=== PATIENT | female | born 1970 | race Caucasian/White ===

== ENCOUNTER 2019-11-11 00:14 | Day surgery (SDC) | payer BC, SELFPAY ==
[2019-10-28 15:49] VITALS: BMI 36.0
[2019-11-11] VITALS (8 sets, daily range): BP systolic 126–143; BP diastolic 49–91; PULSE 55–69; RESP 14–20; TEMP 36.4–36.6; O2SAT 97–100
[2019-11-11 08:45] LABS: Urine Cotinine NEGATIVE
[2019-11-11] MEDS: LACTATED RINGERS 1,000 ML 30 ML IV CONT ×2 (09:00→11:43)
[2019-11-11 09:01] LABS: Hemoglobin 12.6 g/dL (12.0-15.0)
--- NOTE | 2019-11-11 09:12 | WPDHPUPDATE1 ---
History and Physical Update Update Date/Time: 11/11/19 09:12 History and Physical has been reviewed, including an updated exam of the patient. There are NO changes in the patient's condition. Risks, benefits, and alternatives have been discussed and questions answered. Patient agrees to proceed with procedure.
--- NOTE | 2019-11-11 09:14 | WPDANESEPPF ---
Anes - Initial Pre Proc Eval Procedure: Operation Date: 11/11/19 10:30 Proposed Procedures p Right Breast Implant Exchange(Right) - Matt Ram MD s Right Breast Fat Grafting - Matt Ram MD Date/Time: 11/11/19 09:14 Surgeon: Matt Ram MD Pre Op Diagnosis: Right Breast Cancer Patient Data Age: 49 Gender: F Height: 5 ft 7 in Weight: 104.33 kg Allergies Allergy/AdvReac Type Severity Reaction Status Date / Time Sulfa (Sulfonamide Allergy Severe Hives Verified 11/11/19 09:13 Antibiotics) Home Medications Medication Instructions Recorded Confirmed Type cetirizine 10 mg PO DAILY 07/07/19 10/28/19 History fluticasone propionate [Flonase 2 spray INTRANASAL DAILY 07/07/19 10/28/19 History Allergy Relief] levonorgestrel 20 mcg/24 hours (5 1 device I-UTERINE ONCE 08/18/19 10/28/19 History yrs) 52 mg intrauterine device lidocaine-prilocaine 2.5 %-2.5 % 1 applic TOPICAL DIRECTED PRN 08/18/19 10/28/19 History topical cream propranolol 60 mg capsule,24 60 mg PO HS #90 cap 09/30/19 10/28/19 Rx hr,extended release tamoxifen 10 mg tablet 20 mg PO DAILY tablet 10/14/19 10/28/19 History hydrocodone 5 mg-acetaminophen 325 1 tablet PO Q6H PRN #15 tablet 10/27/19 10/28/19 Rx mg tablet ondansetron HCl 4 mg tablet 4 mg PO Q6H PRN #30 tablet 10/27/19 10/28/19 Rx ferrous sulfate [iron] 325 mg PO DAILY 10/28/19 10/28/19 History sertraline 100 mg PO HS 10/28/19 10/28/19 History whgeqhbglw-nyvcgbnzbkllk-kqbyabcp 1 cap PO BID PRN #60 cap 11/04/19 Rx 50 mg-300 mg-40 mg capsule Laboratory Tests 11/11/19 11/11/19 08:26 08:26 Hgb 12.6 g/dL g/dL (12.0-15.0) Hct 40.0 % % (37.0-47.0) Cotinine Negative Patient hx anesthesia problems: none Family hx anesthesia problems: none PMFSH Past Medical History Medical History Allergies Anxiety Migraine Surgical History Surgical History H/O mastectomy History of partial mastectomy History of sinus surgery 2007 Family History Family History Grandparent Breast cancer Father Diabetes mellitus Melanoma Hypertension Thyroid disease Gastrointestinal irritation Mother Breast cancer Social History Social History Smoking status: Former smoker Smoking end date: 09/17/96 Alcohol intake: current Anes - Eval Final PreProcedure Day of Procedure 11/11/19 09:14 Patient weight: obese Heart: regular rate and rhythm Lungs: clear to auscultation Airway: Mallampati scale class II Neurological: alert and oriented Last oral intake: >/= 8 hours ASA classification: III Emergent: no Anesthetic plan: proceed Anesthesia type and monitoring: general LMA and standard monitoring Informed Consent: The patient's anesthetic plan and its attendant risks and benefits were discussed with the patient/family/POA. Questions were solicited and answers provided to the satisfaction of the patient/family/POA.
[2019-11-11] MEDS: ceFAZolin 2 GM/D5W 50 ML 2 GM/50 ML BAG IVPB (09:50)
[2019-11-11] MEDS: LIDO 1%/EPINEPHRINE 1:100,000 20 ML VIAL 10 ML INFILTRATE (11:33)
--- NOTE | 2019-11-11 12:27 | P.OP_ITS ---
Procedure Note - Detailed Date of procedure: 11/11/19 Pre-op diagnosis: Right Breast Cancer 1. Acquired breast deformity 2. History right breast mastectomy 3. History right breast cancer Post-op diagnosis: same Procedure performed: 1. Right breast tissue special education associate removal 2. Right breast capsulotomy 3. Placement right breast implant 4. Fat grafting right breast 60 cc harvest from abdomen Description of procedure: Patient was marked in the preoperative holding area with her verification. Right implant was elevated significantly superiorly we will going to try to lower this understanding the risks. She also understands she may have a band along the lower edge as she has developed a new elevated fold well above her previous IMF scar. She was taken to the operating room placed supine on the operating table. A nesthesia provided by anesthesiology. Prepped and draped in a standard sterile fashion. Surgical time-out was taken. 1% lidocaine and 0.25% Marcaine with epinephrine was used to provide a field block on the right breast. On the abdomen I used a 14 gauge needle at the umbilicus after an abdominal exam was completed. Then infiltrated with a tumescent solution for 1 L. Once adequate time for hemostasis I used a multi hole 2 mm cannula due to complete suction lipectomy through the umbilicus site. Allowed this to separate by gravity separation device and only use the central portion getting rid of the liquid low in the lipid above. While waiting for separation 15 blade used to excise the previous IMF scar in the central portion. I continued until the implant was identified. This tissue special education associate then suctioned 18 gauge on suction and remove the volume. This was 800 cc and matched our estimate from previous notes. I then irrigated with a L of bacitracin containing saline on TUR tubing. I incised along the IMF to release that and lower the fold. Also scored as necessary. A Sizer was placed into the pocket. At this point I proceeded with fat grafting using a 2.1 mm cannula in multiple planes and passes with the Sizer in place. This was based on a sitting position after verified implant positioning and areas to fill. It was essentially entire breast trying to thickened these flaps and in particular superior and superior lateral. Once I was happy with the appearance the Sizer was removed. I irrigated again with saline solution and verified a strict hemostasis. The implant pocket was irrigated with Betadine and triple antibiotic containing solution. Washed my hands with this. Soak the implant I then introduced into the pocket. Throughout the procedure I did have Tegaderm nipple Saenz in place. Verified positioning was closed using 2-0 Vicryl followed by 3-0 Monocryl in a running subcuticular 4-0 Monocryl and tissue glue. Surgical bra was placed. Patient was awoke and taken the PACU without difficulty. All instrument sponge counts were correct at the end of the case. Anesthesia: GLMA Surgeon: Matt Ram MD Estimated blood loss (mL): 50 Drains: No Packing: No Pathology: none sent Complications: No immediate complications Condition: stable Disposition: PACU Findings: Right breast implant [employer] Inspira SoftTouch REF# [id number] SN: [id number]
== END 2019-11-11 13:34 | disposition home or self-care (01) ==
PROVIDERS: Anesthesiology; PCP Internal Medicine; Visit Provider Surgery Plastic and Reconstructive Surgery
PROC: (CPT 11970; principal; 2019-11-11 10:30)
PROC: (CPT 15769; 2019-11-11 10:30)
DX: Z42.1 Encounter for breast reconstruction following mastectomy (principal); Z90.11 Acquired absence of right breast and nipple; Z85.3 Personal history of malignant neoplasm of breast; F41.9 Anxiety disorder, unspecified; Z79.810 Long term (current) use of selective estrogen receptor modulators (SERMs); E66.9 Obesity, unspecified; Z68.36 Body mass index [BMI] 36.0-36.9, adult
CPT/HCPCS: 11970; 19366; 36415; 80307; 85014; 85018; A9270; J0131; J0171; J0690; J1100; J1170; J1580; J2250; J2405; J2704; J2710; J3010; J7030; J7120

== ENCOUNTER 2020-01-08 08:26 | Outpatient (CLI) | payer BC, SELFPAY ==
--- NOTE | ~2020-01-08 | MM_ITS ---
EXAMINATION: MM screening yifan LT w verónica HISTORY: Screening left mammogram, history of right mastectomy TECHNIQUE: Craniocaudal and mediolateral oblique 3-D tomosynthesis images were obtained and synthetic 2-D images were generated. CAD analysis was submitted and interpreted. COMPARISON: 11/11/2018, 12/18/2016, 12/14/2016 BREAST PARENCHYMAL COMPOSITION: There are scattered areas of fibroglandular density. FINDINGS: A Port-A-Cath has been inserted since the previous examination. An asymmetry is present in the middle third of the inner breast 5.5 cm from the nipple on the cranioc audal view.. IMPRESSION: 1. Asymmetry on the craniocaudal view. 2. Additional mammographic views and possible breast ultrasound are recommended. BI-RADS Category 0: Incomplete: Needs additional imaging evaluation. Reviewed, dictated and finalized at location A. IMPRESSION: 1. Asymmetry on the craniocaudal view. 2. Additional mammographic views and possible breast ultrasound are recommended . BI-RADS Category 0: Incomplete: Needs additional imaging evaluation.
== END 2020-01-08 08:27 | disposition home or self-care (01) ==
LOC: ANHIMG 08:29
PROVIDERS: PCP Internal Medicine; Visit Provider Internal Medicine Hematology & Oncology
DX: Z12.31 Encounter for screening mammogram for malignant neoplasm of breast (principal); R92.8 Other abnormal and inconclusive findings on diagnostic imaging of breast
CPT/HCPCS: 77063; 77067

== ENCOUNTER 2020-01-15 11:46 | Outpatient (CLI) | payer BC, SELFPAY ==
--- NOTE | ~2020-01-15 | MMUS_ITS ---
EXAMINATION: MM diagnostic mammo unilat LT, US breast LT limited HISTORY: Asymmetry of left breast reported in middle third of inner breast 5.5 cm from the nipple on left craniocaudal view TECHNIQUE: Additional 3-D tomosynthesis images of the left breast were performed and synthetic 2-D im ages were generated. CAD analysis was submitted and interpreted. High resolution upper inner and lowe r inner quadrant left breast ultrasound was performed. COMPARISON: 01/08/2020 left digital mammographic screening views FINDINGS: MAMMOGRAPHIC FINDINGS: No reproducible mass is evident on these supplemental views. There is suggestion of mild architectura l distortion likely related to history of prior left breast reduction surgery. As a precaution, lower inner and upper inner quadrant left breast ultrasound examination was performed. Left Port-A-Cath catheter. ULTRASOUND: No suspicious mass or shadowing is evident. IMPRESSION: 1. No mammographic evidence of malignancy; status post left breast reduction surgery 2. Routine mammographic screening follow-up in 1 year is recommended unless indicated earlier based u evy clinical history, patient's symptoms or physical examination findings BI-RADS Category 2: Benign finding(s). Reviewed, dictated and finalized at location A. IMPRESSION: 1. No mammographic evidence of malignancy; status post left breast reduction liriano rgery 2. Routine mammographic screening follow-up in 1 year is recommended unless ind icated earlier based upon clinical history, patient's symptoms or physical exam ination findings BI-RADS Category 2: Benign finding(s).
== END 2020-01-15 11:47 | disposition home or self-care (01) ==
PROVIDERS: PCP Internal Medicine; Visit Provider Internal Medicine Hematology & Oncology
DX: R92.8 Other abnormal and inconclusive findings on diagnostic imaging of breast (principal)
CPT/HCPCS: 76642; 77065

== ENCOUNTER 2020-01-16 14:54 | Outpatient (CLI) | payer BC, SELFPAY ==
--- NOTE | 2020-01-16 | ECHO_ITS ---
Patient Info Name: Hilaria Goncalves Age: 49 years : 1970 Gender: Female Ht: 67 in Wt: 230 lbs BSA: 2.26 m2 HR: 55 bpm BP: 116 / 72 mmHg Heart Rhythm: Bradycardia Technical Quality: Good Exam Date: 01/16/2020 3:17 PM Exam Location: [facility] Pulmonary Patient Status: Outpatient Admit Date: 01/16/2020 Staff Ordering Physician: Wei Nagel MD Launch Operator: Favian Andres RDCS Attending Provider: Wei Nagel MD Referring Physician: Shona CARLOS; Exam Type: CA echo doppler color flow Study Info Indications Z01.818 - Encounter for other preprocedural examination Complete two-dimensional, color flow and Doppler transthoracic echocardiogram is performed. Strain analysis performed. History/Risk Factors Breast cancer. Summary 1. Left ventricular chamber dimension is mildly enlarged. 2. Left ventricular systolic function is normal, estimated at 60-65%. 3. The left ventricular diastolic function is normal. 4. E/e' 7 is not elevated. 5. Global longitudinal strain is normal at -22.2%. 6. Left atrial chamber dimension is mildly enlarged. 7. There is trace mitral valve regurgitation. 8. There is trace tricuspid valve regurgitation. Left Ventricle E/e' 7 is not elevated. Global longitudinal strain is normal at -22.2%. Left ventricular chamber dimension is mildly enlarged. Left ventricular systolic function is normal, estimated at 60-65%. The left ventricular diastolic function is normal. Right Ventricle Right ventricular chamber dimension is normal. Right ventricular systolic function is normal. Left Atria Left atrial chamber dimension is mildly enlarged. Right Atria Right atrial chamber dimension is normal. Aortic Valve The aortic valve is trileaflet. There is no aortic valve stenosis. There is no aortic valve regurgitation. Pulmonic Valve There is no pulmonic regurgitation. Mitral Valve There is no mitral valve stenosis. There is trace mitral valve regurgitation. Tricuspid Valve There is trace tricuspid valve regurgitation. RVSP is not measured due to an inadequate TR jet. Pericardium/Pleural There is no pericardial effusion. Inferior Vena Cava Normal inferior vena cava with >50% collapse upon inspiration consistent with normal right atrial pressure, 5 mmHg. Aorta The aortic root size at the sinus of Valsalva is normal. Left Ventricular Outflow Tract Name Value Normal LVOT 2D LVOT Diameter 2.0 cm LVOT Doppler LVOT Peak Gradient 6 mmHg LVOT Mean Gradient 3 mmHg LVOT VTI 29 cm LVOT VTI/AV VTI Ratio 0.8 LVOT Stroke Volume 89 ml LVOT CO 4.9 l/min LVOT CI 2.2 l/min/m2 Mitral Valve Name Value Normal MV Doppler
== END 2020-01-16 14:55 | disposition home or self-care (01) ==
PROVIDERS: PCP Internal Medicine; Visit Provider Internal Medicine Hematology & Oncology
DX: Z01.810 Encounter for preprocedural cardiovascular examination (principal); I51.7 Cardiomegaly
CPT/HCPCS: 93306

== ENCOUNTER 2020-02-16 14:18 | Outpatient (CLI) | payer BC, SELFPAY ==
--- NOTE | ~2020-02-16 | XR_ITS ---
EXAMINATION: XR fl port a cath w contrast DATE: 02/16/2020 14:54 INDICATION: Port dysfunction. TECHNIQUE: I performed fluoroscopy while the port was injected with Omnipaque 240 intravenous contras t. 161 images were obtained. Fluoroscopy exposure time was 0.1 minutes. COMPARISON: Chest single view 01/06/2019 FINDINGS: There is a left chest port with tip in superior vena cava. The catheter tip has retracted 3 cm when compared to the prior image. There is no fracture of the catheter. There is dense retrograde flow of contrast in the veins around the catheter tip. There is fainter antegrade flow contrast. IMPRESSION: 1. Retrograde and antegrade dispersion of contrast at the catheter tip in the superior vena cava sugg esting incomplete extrinsic blockage. Reviewed, dictated and finalized at location A. IMPRESSION: 1. Retrograde and antegrade dispersion of contrast at the catheter tip in the s uperior vena cava suggesting incomplete extrinsic blockage.
== END 2020-02-16 14:19 | disposition home or self-care (01) ==
LOC: ANHIMG 14:22
PROVIDERS: PCP Internal Medicine; Visit Provider Internal Medicine Hematology & Oncology
DX: C50.411 Malignant neoplasm of upper-outer quadrant of right female breast (principal); Z17.0 Estrogen receptor positive status [ER+]
CPT/HCPCS: 36598; Q9966

== ENCOUNTER 2020-03-04 12:36 | Outpatient (CLI) | payer BC, SELFPAY ==
[2020-03-04 13:18] LABS: Basophils Percent Auto 0.6 % (0.2-1.2); Eosinophils Absolute Auto 0.1 K/mm3 (0-0.3); Eosinophils Percent Auto 1.8 % (0-4.4); Hematocrit 38.2 % (37.0-47.0); Hemoglobin 12.7 g/dL (12.0-15.0); Immature Granulocyte Absolute 0.01 K/mm3 (0.00-0.031); Immature Granulocyte Percent A 0.2 % (0-0.5); Lymphocytes Absolute Auto 1.35 K/mm3 (0.9-3.2); Lymphocytes Percent Auto 26.3 % (18.3-44.2); Mean Corpuscular HGB Conc 33.2 g/dl (32-36); Mean Corpuscular Hemoglobin 30.2 pg (26-34); Mean Corpuscular Volume 90.7 fl (80-100); Mean Platelet Volume 11.3 fl (7.4-10.4); Monocytes Absolute Auto 0.4 K/mm3 (0.1-0.6); Monocytes Percent Auto 7.2 % (2.6-8.5); Neutrophils Absolute Auto 3.3 K/mm3 (1.3-6.7); Neutrophils Percent Auto 63.9 % (45.5-73.1); Platelet Count Result 241 k/mm3 (150-375); Red Blood Count 4.21 M/mm3 (4.2-5.4); Red Cell Distribution Width 12.4 % (11.5-14.5); White Blood Count 5.1 K/mm3 (4.5-10.0)
[2020-03-04 13:26] LABS: Alanine Aminotransferase 12 U/L (4-35); Albumin Level 4.1 g/dL (3.5-5.1); Alkaline Phosphatase 91 U/L (38-126); Aspartate Amino Transferase 18 U/L (14-36); Bilirubin,Total 0.2 mg/dL (0.2-1.3); Blood Urea Nitrogen 17 mg/dL (7-17); Calcium 8.6 mg/dL (8.4-10.2); Carbon Dioxide 27 mmol/L (22-30); Chloride 105 mmol/L (98-107); Estimated Glomerular Filt Rate > 60; Glucose 134 mg/dL (65-105); Potassium 4.1 mmol/L (3.4-5.0); Sodium 137 mmol/L (137-145)
== END 2020-03-04 12:37 | disposition home or self-care (01) ==
LOC: ANHLAB 12:46 → ANHVASCINF 12:50
PROVIDERS: PCP Internal Medicine; Visit Provider Internal Medicine Hematology & Oncology
DX: C50.411 Malignant neoplasm of upper-outer quadrant of right female breast (principal); Z17.0 Estrogen receptor positive status [ER+]
CPT/HCPCS: 36415; 80053; 85025; 99212; G0463

== ENCOUNTER 2020-03-09 00:24 | Outpatient (CLI) | payer BC, SELFPAY ==
[2020-03-09 18:55] LABS: SARS-CoV-2 RNA PCR Negative
== END 2020-03-09 00:25 | disposition home or self-care (01) ==
LOC: ANHCOVIDDT 00:24
PROVIDERS: PCP Internal Medicine; Visit Provider Surgery
DX: Z01.818 Encounter for other preprocedural examination (principal); Z11.59 Encounter for screening for other viral diseases
CPT/HCPCS: 87635; C9803; U0003

== ENCOUNTER 2020-03-11 00:58 | Day surgery (SDC) | payer BC, SELFPAY ==
[2020-03-08 09:56] VITALS: BMI 37.5
--- NOTE | 2020-03-11 09:26 | PM.IMHP ---
H&P: HPI History of Present Illness Chief complaint: Rt Breast Ca Narrative: Hilaria Goncalves is a 49 year old female presenting for port removal. The patient has a history of right-sided breast cancer for which she is getting Herceptin. The patient had port placed in left chest in December of 2018. The patient reports as of her last treatment, which was a month ago, that her port has been nonfunctional. The patient had a port study which confirmed nonfunctioning. Given that she only has 2 treatments left, the decision was made for port removal. Review of Systems Constitutional: Constitutional: Denies anorexia, Denies chills, Denies fatigue, Denies headache(s), Denies lethargy, Denies malaise, Denies poor appetite, Denies weakness, Denies weight gain and Denies weight loss Eyes: Eyes: Reports no additional eye complaints and Denies change in vision ENT: Reports Normal hearing present, Denies headache(s), Denies hearing loss and Denies sore throat Cardiovascular: Cardiovascular: Denies chest pain, Denies palpitations and Denies dyspnea Respiratory: Respiratory: Denies cough and Denies dyspnea Gastrointestinal: Gastrointestinal: Denies abdominal pain, Denies change in stool character, Denies constipation, Denies diarrhea, Denies nausea and Denies vomiting Genitourinary: Genitourinary: Denies urinary frequency, Denies dysuria and Denies urinary urgency Musculoskeletal: Musculoskeletal: Reports no additional musculoskeletal complaints Integumentary/Breasts: Skin/Breast: Denies pruritus, Denies lesions and Denies wounds Neurologic: Denies confusion and Denies headache(s) Psychiatric: Psychiatric: Reports no additional psychiatric complaints and Denies confusion Endocrine: Endocrine: Reports no additional endocrine complaints, Denies fatigue and Denies palpitations Hematologic/Lymphatic: Hematologic/Lymphatic: Reports no additional hematologic/lymphatic complaints Allergic/Immunologic: Allergic/Immunologic: Reports no additional allergic/immunologic complaints [facility] Past Medical History Medical History Allergies Anxiety Breast cancer GERD (gastroesophageal reflux disease) Migraine Surgical History Surgical History H/O mastectomy History of partial mastectomy History of sinus surgery 2007 Family History Family History Grandparent Breast cancer Father Diabetes mellitus Melanoma Hypertension Thyroid disease Gastrointestinal irritation Mother Breast cancer Social History Social History Smoking status: Former smoker Smoking end date: 09/17/96 Alcohol intake: current Meds Home Medications and Allergies Home Medications Medication Instructions Recorded Confirmed Type cetirizine 10 mg PO DAILY 07/07/19 03/08/20 History fluticasone propionate [Flonase 2 spray INTRANASAL DAILY 07/07/19 03/08/20 History Allergy Relief] levonorgestrel 20 mcg/24 hours (5 1 device I-UTERINE ONCE 08/18/19 03/08/20 History yrs) 52 mg intrauterine device tamoxifen 10 mg tablet 20 mg PO DAILY tablet 10/14/19 03/08/20 History ferrous sulfate [iron] 325 mg PO DAILY 10/28/19 03/08/20 History propranolol 60 mg capsule,24 60 mg PO HS #90 cap 01/01/20 03/08/20 Rx hr,extended release natkyvxdwm-hulanspuhuiog-vafuhlwv 1 cap PO BID PRN #60 cap 01/27/20 03/08/20 Rx 50 mg-300 mg-40 mg capsule sertraline 150 mg PO HS 03/08/20 03/08/20 History Allergies Allergy/AdvReac Type Severity Reaction Status Date / Time Sulfa (Sulfonamide Allergy Severe Hives Verified 03/08/20 09:48 Antibiotics) Exam Const: General: cooperative, healthy appearing, no acute distress and well developed; No confusion Orientation/consciousness: patient oriented x3 and No confusion HENMT: Head: normal to inspection, n
--- NOTE | 2020-03-11 09:27 | WPDANESEPPF ---
Anes - Initial Pre Proc Eval Procedure: Operation Date: 03/11/20 11:00 Proposed Procedures p Removal Alia Cath - Radha Peters MD Date/Time: 03/11/20 09:27 Surgeon: Radha Peters MD Pre Op Diagnosis: Rt Breast Ca Patient Data Age: 49 Gender: F Height: 1.7 m Weight: 108.86 kg Allergies Allergy/AdvReac Type Severity Reaction Status Date / Time Sulfa (Sulfonamide Allergy Severe Hives Verified 03/08/20 09:48 Antibiotics) Home Medications Medication Instructions Recorded Confirmed Type cetirizine 10 mg PO DAILY 07/07/19 03/08/20 History fluticasone propionate [Flonase 2 spray INTRANASAL DAILY 07/07/19 03/08/20 History Allergy Relief] levonorgestrel 20 mcg/24 hours (5 1 device I-UTERINE ONCE 08/18/19 03/08/20 History yrs) 52 mg intrauterine device tamoxifen 10 mg tablet 20 mg PO DAILY tablet 10/14/19 03/08/20 History ferrous sulfate [iron] 325 mg PO DAILY 10/28/19 03/08/20 History propranolol 60 mg capsule,24 60 mg PO HS #90 cap 01/01/20 03/08/20 Rx hr,extended release ceynnewnnd-kdgmgdjagvvxa-nnrgccmj 1 cap PO BID PRN #60 cap 01/27/20 03/08/20 Rx 50 mg-300 mg-40 mg capsule sertraline 150 mg PO HS 03/08/20 03/08/20 History Patient hx anesthesia problems: none Family hx anesthesia problems: none [facility] Past Medical History Medical History (Updated 03/10/20 @ 09:03 by Da Emmanuel DO) Allergies Anxiety Breast cancer GERD (gastroesophageal reflux disease) Migraine Surgical History Surgical History H/O mastectomy History of partial mastectomy History of sinus surgery 2007 Social History Social History Smoking status: Former smoker Smoking end date: 09/17/96 Alcohol intake: current Anes - Eval Final PreProcedure Day of Procedure 03/11/20 09:27 Patient weight: obese Heart: regular rate and rhythm Lungs: clear to auscultation and normal air movement Airway: Mallampati scale class III Neurological: alert and oriented Last oral intake: >/= 8 hours ASA classification: II Emergent: no Anesthetic plan: proceed Anesthesia type and monitoring: general GIVS and standard monitoring Informed Consent: The patient's anesthetic plan and its attendant risks and benefits were discussed with the patient/family/POA. Questions were solicited and answers provided to the satisfaction of the patient/family/POA.
[2020-03-11] MEDS: IBUPROFEN IV 800 MG/200 ML 800 MG/200 ML BAG 400 MG IVPB (09:40)
[2020-03-11] MEDS: LACTATED RINGERS 1,000 ML 30 ML IV CONT (09:40)
[2020-03-11 09:49] VITALS: BP 100/60; PULSE 54; RESP 16; TEMP 36.8; O2SAT 97
[2020-03-11] MEDS: ceFAZolin 2 GM/D5W 50 ML 2 GM/50 ML BAG IVPB (10:46)
[2020-03-11] MEDS: BUPIVACAINE/EPINEPHRINE 0.5% 30 ML VIAL INFILTRATE (11:14)
[2020-03-11 11:21] VITALS: BP 98/59; PULSE 60; RESP 16; O2SAT 96
--- NOTE | 2020-03-11 11:46 | P.OP_ITS ---
Procedure Note - Detailed Date of procedure: 03/11/20 Pre-op diagnosis: Rt Breast Ca Post-op diagnosis: same Procedure performed: Removal left chest venous access device Description of procedure: The patient was taken to the operating room placed in the supine position. After adequate induction of MAC anesthesia, the patient was prepped and draped in the normal sterile fashion. A time-out was then done to verify the patient's identity, as well as the procedure being performed. I began by localizing the previous incision line in the left chest and around the port itself. Once this was done, I made an incision through the old incision to the level of the port. I then bluntly dissected around the port, and located the 2 sutures holding the port in place. I then cut the 2 sutures and removed the port from the pocket. I was then able to remove the port and catheter in full. The catheter was noted in the left subclavian vein. I then held pressure at the level of the left subclavian vein for approximately 5 minutes. Hemostas is was noted after pressure was held. I then localized the pocket further and closed the subcutaneous tissue with 3 0 Vicryl suture. I then closed the skin with 4 O Monocryl subcuticular suture. Dermabond was then placed on the wound. The patient tolerated the procedure well, was alert and awake in the operating room postoperatively, and will be transferred to the recovery in stable condition. Implants: none Anesthesia: MAC and local Surgeon: Radha Peters MD Estimated blood loss (mL): 5 Drains: No Packing: No Pathology: none sent Complications: No immediate complications Condition: stable Disposition: PACU Findings: left SCV VAD
[2020-03-11 11:51] VITALS: BP 103/65; PULSE 56; RESP 16
[2020-03-11 12:21] VITALS: BP 100/67; PULSE 55; RESP 16
== END 2020-03-11 12:27 | disposition home or self-care (01) ==
PROVIDERS: PCP Internal Medicine; Visit Provider Surgery
PROC: (CPT 36589; principal; 2020-03-11 11:00)
DX: Z45.2 Encounter for adjustment and management of vascular access device (principal); C50.411 Malignant neoplasm of upper-outer quadrant of right female breast; Z17.0 Estrogen receptor positive status [ER+]; Z79.810 Long term (current) use of selective estrogen receptor modulators (SERMs); Z90.11 Acquired absence of right breast and nipple; F41.9 Anxiety disorder, unspecified; K21.9 Gastro-esophageal reflux disease without esophagitis; G43.909 Migraine, unspecified, not intractable, without status migrainosus; Z87.891 Personal history of nicotine dependence
CPT/HCPCS: 36590; 87635; C9803; J0690; J1741; J2250; J2704; J3010; J7120; U0003

== ENCOUNTER 2020-04-15 13:32 | Outpatient (CLI) | payer BC, SELFPAY ==
[2020-04-15 14:07] LABS: Basophils Percent Auto 0.8 % (0.2-1.2); Eosinophils Absolute Auto 0.1 K/mm3 (0-0.3); Eosinophils Percent Auto 1.9 % (0-4.4); Hematocrit 38.5 % (37.0-47.0); Hemoglobin 12.7 g/dL (12.0-15.0); Immature Granulocyte Absolute 0.01 K/mm3 (0.00-0.031); Immature Granulocyte Percent A 0.2 % (0-0.5); Lymphocytes Absolute Auto 1.53 K/mm3 (0.9-3.2); Lymphocytes Percent Auto 29.8 % (18.3-44.2); Mean Corpuscular Hemoglobin 30.2 pg (26-34); Mean Corpuscular Volume 91.4 fl (80-100); Mean Platelet Volume 11.3 fl (7.4-10.4); Monocytes Absolute Auto 0.3 K/mm3 (0.1-0.6); Monocytes Percent Auto 6.2 % (2.6-8.5); Neutrophils Absolute Auto 3.1 K/mm3 (1.3-6.7); Neutrophils Percent Auto 61.1 % (45.5-73.1); Platelet Count Result 259 k/mm3 (150-375); Red Blood Count 4.21 M/mm3 (4.2-5.4); Red Cell Distribution Width 12.2 % (11.5-14.5); White Blood Count 5.1 K/mm3 (4.5-10.0)
[2020-04-15 14:21] LABS: Alanine Aminotransferase 16 U/L (4-35); Albumin Level 4.1 g/dL (3.5-5.1); Alkaline Phosphatase 90 U/L (38-126); Anion Gap 12.2 mmol/L (7-16); Aspartate Amino Transferase 23 U/L (14-36); Bilirubin,Total 0.2 mg/dL (0.2-1.3); Blood Urea Nitrogen 17 mg/dL (7-17); Calcium 8.8 mg/dL (8.4-10.2); Carbon Dioxide 27 mmol/L (22-30); Chloride 104 mmol/L (98-107); Estimated Glomerular Filt Rate > 60; Glucose 120 mg/dL (65-105); Potassium 4.2 mmol/L (3.4-5.0); Sodium 139 mmol/L (137-145)
== END 2020-04-15 13:33 | disposition home or self-care (01) ==
PROVIDERS: PCP Internal Medicine; Visit Provider Internal Medicine Hematology & Oncology
DX: C50.411 Malignant neoplasm of upper-outer quadrant of right female breast (principal); Z17.0 Estrogen receptor positive status [ER+]
CPT/HCPCS: 36415; 80053; 85025; 99212; G0463

== ENCOUNTER 2020-12-30 08:46 | Outpatient (CLI) | payer BC, SELFPAY | END 2020-12-30 08:47 | disposition home or self-care (01) | LOC: ANHCOVIDVC 08:46 | PROVIDERS: PCP Internal Medicine | DX: Z23 Encounter for immunization (principal) | CPT/HCPCS: 0001A; 91300 ==

== ENCOUNTER 2021-01-20 08:46 | Outpatient (CLI) | payer BC, SELFPAY | END 2021-01-20 08:47 | disposition home or self-care (01) | LOC: ANHCOVIDVC 08:47 | PROVIDERS: PCP Internal Medicine | DX: Z23 Encounter for immunization (principal) | CPT/HCPCS: 0002A; 91300 ==

== ENCOUNTER 2021-03-03 16:16 | Outpatient (CLI) | payer BC, SELFPAY ==
--- NOTE | ~2021-03-03 | MM_ITS ---
EXAMINATION: MM screening yifan LT w verónica HISTORY: Screening left mammogram, history of right mastectomy TECHNIQUE: Craniocaudal and mediolateral oblique 3-D tomosynthesis images were obtained and synthetic 2-D images were generated. CAD analysis was submitted and interpreted. COMPARISON: 01/15/2020, 01/08/2020, 11/11/2018, 12/18/2016 BREAST PARENCHYMAL COMPOSITION: There are scattered areas of fibroglandular density. FINDINGS: There is no evidence of suspicious mass, calcification, or architectural distortion to sugg est malignancy. There has been no suspicious interval change. IMPRESSION: 1. No mammographic evidence of malignancy. 2. Recommend routine screening mammography in one year. BI-RADS Category 1: Negative Reviewed, dictated and finalized at location A.
== END 2021-03-03 16:17 | disposition home or self-care (01) ==
LOC: ANHIMG 16:18
PROVIDERS: PCP Internal Medicine; Visit Provider Internal Medicine Hematology & Oncology
DX: Z12.31 Encounter for screening mammogram for malignant neoplasm of breast (principal)
CPT/HCPCS: 77063; 77067

== ENCOUNTER 2022-01-11 01:20 | Day surgery (SDC) | payer BC, SELFPAY ==
[2021-12-30 10:47] VITALS: BMI 39.2
[2022-01-11 12:32] VITALS: BP 118/81; PULSE 78; RESP 18; TEMP 37.3; O2SAT 97; BMI 38.8
[2022-01-11] MEDS: LACTATED RINGERS 1,000 ML 150 ML IV CONT (12:56)
--- NOTE | 2022-01-11 13:57 | WPDANESEPPF ---
Anes - Initial Pre Proc Eval Procedure: Operation Date: 01/11/22 13:45 Proposed Procedures p Screening Colonoscopy - Ben Blackmon MD Date/Time: 01/11/22 13:57 Surgeon: Ben Blackmon MD Pre Op Diagnosis: neoplasm screening Patient Data Age: 51 Gender: F Height: 1.7 m Weight: 112.6 kg Last Vital Signs Temp 99.1 F 01/11/22 12:32 Pulse 78 01/11/22 12:32 Resp 18 01/11/22 12:32 BP 118/81 01/11/22 12:32 Pulse Ox 97 01/11/22 12:32 Allergies Allergy/AdvReac Type Severity Reaction Status Date / Time Sulfa (Sulfonamide Allergy Severe Hives Verified 01/11/22 12:43 Antibiotics) Home Medications Medication Instructions Recorded Confirmed Type cetirizine 10 mg PO DAILY 07/07/19 01/11/22 History fluticasone propionate [Flonase 2 spray INTRANASAL DAILY 07/07/19 01/11/22 History Allergy Relief] levonorgestrel 20 mcg/24 hours (7 1 device I-UTERINE ONCE 08/18/19 01/11/22 History yrs) 52 mg intrauterine device tamoxifen 10 mg tablet 20 mg PO DAILY tablet 10/14/19 01/11/22 History hydroxyzine HCl 10 mg tablet 10 mg PO BID PRN #60 tablet 09/01/20 01/11/22 Rx sertraline 100 mg tablet 150 mg PO DAILY #135 tablet 03/09/21 01/11/22 Rx propranolol 60 mg capsule,24 60 mg PO HS #90 cap 07/04/21 01/11/22 Rx hr,extended release jqnykhkmrr-mzwqfkilnvgyx-pstmqylo 1 cap PO DAILY PRN #30 cap 11/09/21 01/11/22 Rx 50 mg-300 mg-40 mg capsule Patient hx anesthesia problems: none Family hx anesthesia problems: none Results Review: All pre-operative results and documents have been reviewed as part of the pre-operative evaluation. [facility] Past Medical History Medical History Allergies Anxiety Breast cancer GERD (gastroesophageal reflux disease) Migraine Surgical History Surgical History H/O mastectomy History of partial mastectomy History of sinus surgery 2007 Family History Family History Grandparent Breast cancer Father Diabetes mellitus Melanoma Hypertension Thyroid disease Gastrointestinal irritation Mother Breast cancer Social History Social History Years smoked: 2 Smoking status: Former smoker Tobacco type: cigarettes Smoking end date: 09/17/96 Alcohol intake: current Drinks per week: 1 Substance use: never Substance use type: does not use Living arrangements: with family Spiritual care concerns: No Anes - Eval Final PreProcedure Day of Procedure 01/11/22 13:57 Patient weight: obese Heart: regular rate and rhythm Airway: Mallampati scale class III Neurological: alert and oriented Last oral intake: >/= 8 hours ASA classification: III Emergent: no Anesthetic plan: proceed Anesthesia type and monitoring: general GIVS and standard monitoring Results Review: All pre-operative results and documents have been reviewed as part of the pre-operative evaluation. Informed Consent: The patient's anesthetic plan and its attendant risks and benefits were discussed with the patient/family/POA. Questions were solicited and answers provided to the satisfaction of the patient/family/POA.
--- NOTE | 2022-01-11 14:24 | PM.HPGS ---
History of Present Illness History of Present Illness Consent: Risks, benefits, and alternatives have been discussed and questions answered. Patient agrees to proceed with procedure. Chief complaint: neoplasm screening Narrative: Hilaria Goncalves is a 51 year old female here for first screening colonoscopy Review of Systems Constitutional: Constitutional: Denies headache(s) and Denies weakness Eyes: Eyes: Denies blurry vision ENT: Reports Normal hearing present, Denies headache(s) and Denies neck pain Cardiovascular: Cardiovascular: Denies chest pain and Denies dyspnea Respiratory: Respiratory: Denies dyspnea Gastrointestinal: Gastrointestinal: Reports no additional gastrointestinal complaints Genitourinary: Genitourinary: Denies dysuria Musculoskeletal: Musculoskeletal: Denies neck pain Integumentary/Breasts: Skin/Breast: Denies dry skin Neurologic: Reports Normal hearing present, Denies headache(s) and Denies weakness Psychiatric: Psychiatric: Denies anxiety Endocrine: Endocrine: Denies change in body appearance Hematologic/Lymphatic: Hematologic/Lymphatic: Denies easy bleeding Allergic/Immunologic: Allergic/Immunologic: Denies urticaria PMFSH Past Medical History Medical History Allergies Anxiety Breast cancer GERD (gastroesophageal reflux disease) Migraine Surgical History Surgical History H/O mastectomy History of partial mastectomy History of sinus surgery 2007 Family History Family History Grandparent Breast cancer Father Diabetes mellitus Melanoma Hypertension Thyroid disease Gastrointestinal irritation Mother Breast cancer Social History Social History Years smoked: 2 Smoking status: Former smoker Tobacco type: cigarettes Smoking end date: 09/17/96 Alcohol intake: current Drinks per week: 1 Substance use: never Substance use type: does not use Living arrangements: with family Spiritual care concerns: No Meds Home Medications and Allergies Home Medications Medication Instructions Recorded Confirmed Type cetirizine 10 mg PO DAILY 07/07/19 01/11/22 History fluticasone propionate [Flonase 2 spray INTRANASAL DAILY 07/07/19 01/11/22 History Allergy Relief] levonorgestrel 20 mcg/24 hours (7 1 device I-UTERINE ONCE 08/18/19 01/11/22 History yrs) 52 mg intrauterine device tamoxifen 10 mg tablet 20 mg PO DAILY tablet 10/14/19 01/11/22 History hydroxyzine HCl 10 mg tablet 10 mg PO BID PRN #60 tablet 09/01/20 01/11/22 Rx sertraline 100 mg tablet 150 mg PO DAILY #135 tablet 03/09/21 01/11/22 Rx propranolol 60 mg capsule,24 60 mg PO HS #90 cap 07/04/21 01/11/22 Rx hr,extended release [id number]-xjgckkbxrfkxh-vqqwrljl 1 cap PO DAILY PRN #30 cap 11/09/21 01/11/22 Rx 50 mg-300 mg-40 mg capsule Allergies Allergy/AdvReac Type Severity Reaction Status Date / Time Sulfa (Sulfonamide Allergy Severe Hives Verified 01/11/22 12:43 Antibiotics) Vital Signs Vital Signs - 24 hr 01/11/22 12:32 Temperature 99.1 F Pulse Rate 78 Respiratory Rate 18 Blood Pressure 118/81 Pulse Oximetry 97 Exam Const: General: comfortable and no acute distress HENMT: General nose exam: Normal nares present Eyes: General: appearance normal, both eyes and all related structures Neck: Neck: no JVD Resp: Auscultation: clear to auscultation bilaterally Cardio: Rate: regular rate Rhythm: regular rhythm GI: Inspection: non-distended GI Palp: Yes Soft to palpation Skin: General skin exam: normal color Neuro: General: gait normal Speech: normal speech Extrem: General: normal to inspection Psych: Mental Status: mental status grossly normal Assessment and Plan Assessment and plan (
[2022-01-11 14:48] VITALS: BP 102/63; PULSE 67; RESP 20; O2SAT 95
[2022-01-11 14:58] VITALS: BP 118/75; PULSE 62; RESP 22; O2SAT 97
[2022-01-11 15:08] VITALS: BP 123/77; PULSE 59; RESP 21; O2SAT 99
== END 2022-01-11 15:15 | disposition home or self-care (01) ==
PROVIDERS: PCP Internal Medicine; Visit Provider Internal Medicine Gastroenterology
PROC: 0DJD8ZZ Inspection of Lower Intestinal Tract, Via Natural or Artificial Opening Endoscopic (ICD-10-PCS; CPT 45378; principal; 2022-01-11 13:45)
DX: Z12.11 Encounter for screening for malignant neoplasm of colon (principal); D12.2 Benign neoplasm of ascending colon; K63.5 Polyp of colon; K57.30 Diverticulosis of large intestine without perforation or abscess without bleeding; K64.8 Other hemorrhoids; K21.9 Gastro-esophageal reflux disease without esophagitis; F41.9 Anxiety disorder, unspecified; Z85.3 Personal history of malignant neoplasm of breast; Z79.810 Long term (current) use of selective estrogen receptor modulators (SERMs); Z87.891 Personal history of nicotine dependence; E66.9 Obesity, unspecified; Z68.38 Body mass index [BMI] 38.0-38.9, adult
CPT/HCPCS: 45380; 45385; 88305; J2704; J7120

== ENCOUNTER 2022-04-24 09:37 | Outpatient (CLI) | payer BC, SELFPAY ==
--- NOTE | ~2022-04-24 | MM_ITS ---
EXAMINATION: MM screening yifan LT w verónica HISTORY: Screening left mammogram, history of right mastectomy TECHNIQUE: Craniocaudal and mediolateral oblique 3-D tomosynthesis images were obtained and synthetic 2-D images were generated. CAD analysis was submitted and interpreted. COMPARISON: 03/03/2021, 01/15/2020, 01/08/2020, 11/11/2018 BREAST PARENCHYMAL COMPOSITION: There are scattered areas of fibroglandular density. FINDINGS: There is no suspicious mass, calcification, or architectural distortion to suggest malignan cy. There has been no suspicious interval change. IMPRESSION: 1. No mammographic evidence of malignancy. 2. Recommend routine screening mammography in one year. BI-RADS Category 1: Negative Reviewed, dictated and finalized at location A.
== END 2022-04-24 09:38 | disposition home or self-care (01) ==
LOC: ANHIMG 09:39
PROVIDERS: PCP Internal Medicine; Visit Provider Internal Medicine Hematology & Oncology
DX: Z12.31 Encounter for screening mammogram for malignant neoplasm of breast (principal)
CPT/HCPCS: 77063; 77067

== ENCOUNTER 2022-12-09 12:10 | Emergency (ER) | payer BC, SELFPAY ==
[2022-12-09 12:20] VITALS: BP 127/84; PULSE 68; RESP 16; TEMP 36.5; O2SAT 99
--- NOTE | 2022-12-09 12:31 | ED.URI ---
HPI - URI/Sore Throat General Chief Complaint: Upper Respiratory Infection Stated Complaint: anastacio,face pain,fatigue Source: patient and RN notes reviewed History of Present Illness HPI Narrative: 52-year-old female presents urgent care with complaints of congestion, facial pressure, and headache x1 week. Patient states her symptoms continue to get worse. Denies any fevers, chills, vomiting, diarrhea, chest pain, or shortness of breath. Patient has been taking DayQuil and NyQuil without relief. Some parts of this dictation were generated by voice recognition software and may contain typographical and/or grammatical inaccuracies. Related Data Home Medications Medication Instructions Recorded Confirmed cetirizine 10 mg tablet 10 mg PO DAILY 07/07/19 12/09/22 fluticasone propionate 50 2 spray intranasal DAILY 07/07/19 12/09/22 mcg/actuation nasal spray,suspension (Flonase Allergy Relief) levonorgestrel 21 mcg/24 hours (8 1 device intrauterine ONCE 08/18/19 12/09/22 yrs) 52 mg intrauterine device (Mirena) tamoxifen 10 mg tablet 20 mg PO DAILY 10/14/19 12/09/22 Allergies Allergy/AdvReac Type Severity Reaction Status Date / Time Sulfa (Sulfonamide Allergy Severe Hives Verified 12/09/22 12:19 Antibiotics) Review of Systems Review of Systems: Pertinent positives and pertinent negatives per HPI. PMF Past Medical History Medical History Allergies Anxiety Breast cancer GERD (gastroesophageal reflux disease) Migraine Surgical History Surgical History H/O mastectomy History of partial mastectomy History of sinus surgery 2007 Family History Family History Grandparent Breast cancer Father Diabetes mellitus Melanoma Hypertension Thyroid disease Gastrointestinal irritation Mother Breast cancer Social History Social History (Updated 09/27/22 @ 08:07 by Tanya Azevedo CMA) Years smoked: 2 Smoking status: Never smoker Tobacco type: cigarettes Smoking end date: 09/17/96 Alcohol intake: current Drinks per week: 1 Substance use: never Substance use type: does not use Lack of Transportation: No Lack of Food: Never True Current Housing: I Have Housing Concerned About Future Housing: No Difficulty Paying Gas/Electric Bills: No Difficulty Paying for Meds: No Currently Unemployed: No Education: Bachelor's Degree Difficulty w/ Childcare or Family Care: No Living arrangements: with family Spiritual care concerns: No Comments At the time of my signature, I reviewed and agree with the nursing past medical, surgical, social, and family history. There is no relevant family history pertinent to the patient complaint. Exam Narrative: GENERAL: This is a well-nourished, well-developed patient, in no apparent distress. HEAD: normocephalic, atraumatic. EYES: Sclera clear/white. Vision is grossly intact. EARS: External ears normal, auditory canals clear and without drainage. Hearing grossly intact. NOSE: External nose normal with no obvious nasal discharge, nares without redness, no rhinorrhea. Congestion. THROAT: Mucous membranes moist, posterior pharynx clear. NECK: Neck supple, non-tender without lymphadenopathy, masses or thyromegaly. CARDIOVASCULAR: Regular rate and rhythm without murmurs, gallops, or rubs. RESPIRATORY: Clear to auscultation. Breath sounds equal bilaterally. No wheezes, rales, or rhonchi. GASTROINTESTINAL: Abdomen soft, non-tender, nondistended. Bowel sounds are active. No hepato-splenomegaly, or palpable masses. No guarding. SKIN: warm, intact with no suspicious lesions or rash, good texture and turgor. NEURO: awake, alert, and oriented to person, place and time. There were no obvious focal neurologic abnormalities. Course Course Level of Care: Express
== END 2022-12-09 12:40 | disposition home or self-care (01) ==
PROVIDERS: Emergency Provider Nurse Practitioner Family; PCP Internal Medicine
DX: J01.00 Acute maxillary sinusitis, unspecified (principal); K21.9 Gastro-esophageal reflux disease without esophagitis; Z85.3 Personal history of malignant neoplasm of breast
CPT/HCPCS: 99213; G0463

== ENCOUNTER 2023-01-24 05:10 | Emergency (ER) | payer BC, SELFPAY ==
--- NOTE | ~2023-01-24 | CT_ITS ---
CT of the Abdomen and Pelvis: Indication: Abdominal pain Technique: 2.5 mm axial scans were obtained through the abdomen and pelvis following intravenous adm inistration of 100 cc of Omnipaque 350. Dose reduction technique was used on this scan by utilizing a utomated exposure control and iterative reconstruction technique. The dose-length product (DLP) was 1 346.17 mGy-cm. Findings: Scans through the lung bases are unremarkable. Small probable hepatic cysts are present. The spleen, pancreas, gallbladder, adrenals and kidneys are within normal limits. No evidence of aortic aneurysm. No lymphadenopathy. There is wall thickening and pericolonic inflammatory change the proximal sigmoid colon, most consist ent with acute diverticulitis. No abscess or free air. Images through the pelvis were performed. Urinary bladder unremarkable. No adnexal mass seen. Trace a scites. Impression: Acute sigmoid diverticulitis. No abscess or free air. Trace pelvic ascites. Reviewed, dictated and finalized at [facility]. Impression: Acute sigmoid diverticulitis. No abscess or free air. Trace pelvic ascites.
--- NOTE | 2023-01-24 07:26 | ED.ABDPAIN ---
HPI - Abdominal Pain General Chief Complaint: Abdominal Pain Time Seen by Provider: 01/24/23 07:21 History of Present Illness HPI narrative: Patient is a 52-year-old female who presents ER with lower abdominal pain. Symptoms began yesterday evening at 8 PM. Reports it is an aching pain that is constant and waxes and wanes in intensity. No radiation. No urinary frequency urgency or dysuria. No diarrhea. No uterine cramping or vaginal discharge/vaginal bleeding. Denies fevers or chills or sweats. No alleviating factors. No history of diverticulitis/kidney stone. Related Data Home Medications Medication Instructions Recorded Confirmed cetirizine 10 mg tablet 10 mg PO DAILY 07/07/19 12/09/22 fluticasone propionate 50 2 spray intranasal DAILY 07/07/19 12/09/22 mcg/actuation nasal spray,suspension (Flonase Allergy Relief) levonorgestrel 21 mcg/24 hours (8 1 device intrauterine ONCE 08/18/19 12/09/22 yrs) 52 mg intrauterine device (Mirena) tamoxifen 10 mg tablet 20 mg PO DAILY 10/14/19 12/09/22 Allergies Allergy/AdvReac Type Severity Reaction Status Date / Time Sulfa (Sulfonamide Allergy Severe Hives Verified 12/09/22 12:19 Antibiotics) Review of Systems Review of Systems: All systems reviewed & are unremarkable except as noted in HPI and below Constitutional: Constitutional: Denies chills, Denies fatigue and Denies fever(s) ENT: Denies nasal congestion and Denies sore throat Gastrointestinal: Gastrointestinal: Reports abdominal pain, Denies bloating, Denies diarrhea, Denies nausea and Denies vomiting Genitourinary: Genitourinary: Denies abnormal vaginal bleeding, Denies nocturia, Denies dysuria, Denies pelvic pain and Denies vaginal discharge [facility] Past Medical History Medical History Allergies Anxiety Breast cancer GERD (gastroesophageal reflux disease) Migraine Surgical History Surgical History H/O mastectomy History of partial mastectomy History of sinus surgery 2007 Family History Family History Grandparent Breast cancer Father Diabetes mellitus Melanoma Hypertension Thyroid disease Gastrointestinal irritation Mother Breast cancer Social History Social History (Updated 09/27/22 @ 08:07 by Tanya Azevedo [facility]) Years smoked: 2 Smoking status: Never smoker Tobacco type: cigarettes Smoking end date: 09/17/96 Alcohol intake: current Drinks per week: 1 Substance use: never Substance use type: does not use Lack of Transportation: No Lack of Food: Never True Current Housing: I Have Housing Concerned About Future Housing: No Difficulty Paying Gas/Electric Bills: No Difficulty Paying for Meds: No Currently Unemployed: No Education: Bachelor's Degree Difficulty w/ Childcare or Family Care: No Living arrangements: with family Spiritual care concerns: No Exam Narrative: GENERAL: Well-appearing, well-nourished, and in no acute distress. HEAD: Normocephalic, atraumatic. ENT: Mucous membranes moist. CHEST: Clear to auscultation. No respiratory distress. HEART: Regular rate and rhythm. Normal peripheral pulses. ABDOMEN: Soft, mild tenderness left lower quadrant without guarding, nondistended. EXTREMITIES: Normal range of motion. No edema. SKIN: Warm, dry, no rash. NEURO: Alert and oriented x3. PSYCH: Normal mood and affect. Course Course Emergency Course: Patient informed of lab and imaging results. Discussed outpatient treatment plan and patient verbalized understanding. Vital Signs Vital signs: Vital Signs Pulse Rate 69 01/24/23 07:30 Respiratory Rate 18 01/24/23 07:30 Blood Pressure 137/80 01/24/23 07:30 Pulse Oximetry 97 01/24/23 07:30 Pulse Rate 69 01/24/23 07:30 Respiratory Rate 18 01/24/23 07:30 Blood
[2023-01-24 07:30] VITALS: BP 137/80; PULSE 69; RESP 18; O2SAT 97
[2023-01-24] MEDS: MORPHINE SULFATE (*CRX) 4 MG/ML INJ IV PUSH (07:54)
[2023-01-24 08:00] LABS: Basophils Absolute Auto 0.1 K/mm3 (0.0-0.1); Basophils Percent Auto 0.5 % (0.2-1.2); Eosinophils Absolute Auto 0.1 K/mm3 (0-0.3); Eosinophils Percent Auto 0.9 % (0-4.4); Hematocrit 40.1 % (37.0-47.0); Hemoglobin 12.9 g/dL (12.0-15.0); Immature Granulocyte Absolute 0.02 K/mm3 (0.00-0.031); Immature Granulocyte Percent A 0.2 % (0-0.5); Lymphocytes Absolute Auto 1.67 K/mm3 (0.9-3.2); Mean Corpuscular HGB Conc 32.2 g/dl (32-36); Mean Corpuscular Hemoglobin 29.3 pg (26-34); Mean Corpuscular Volume 90.9 fl (80-100); Mean Platelet Volume 10.9 fl (7.4-10.4); Monocytes Absolute Auto 0.8 K/mm3 (0.1-0.6); Monocytes Percent Auto 8.1 % (2.6-8.5); Neutrophils Absolute Auto 6.7 K/mm3 (1.3-6.7); Neutrophils Percent Auto 72.3 % (45.5-73.1); Platelet Count Result 208 k/mm3 (150-375); Red Blood Count 4.41 M/mm3 (4.2-5.4); Red Cell Distribution Width 12.5 % (11.5-14.5); White Blood Count 9.3 K/mm3 (4.5-10.0)
[2023-01-24 08:08] LABS: Alanine Aminotransferase 16 U/L (6-35); Albumin Level 4.1 g/dL (3.5-5.1); Alkaline Phosphatase 76 U/L (38-126); Anion Gap 7 mmol/L (8-16); Aspartate Amino Transferase 18 U/L (14-36); Bilirubin,Total 0.5 mg/dL (0.2-1.3); Blood Urea Nitrogen 14 mg/dL (7-17); Calcium 8.3 mg/dL (8.4-10.2); Carbon Dioxide 25 mmol/L (22-30); Chloride 105 mmol/L (98-107); Estimated Glomerular Filt Rate > 60; Glucose 110 mg/dL (65-110); Potassium 4.2 mmol/L (3.4-5.0); Sodium 137 mmol/L (137-145)
[2023-01-24 08:23] LABS: Estimated Glomerular Filt Rate 58
[2023-01-24 08:44] LABS: Appearance Urine Clear (Clear); Bacteria Urine None Seen /hpf; Bilirubin Urine Negative (Negative); Blood Urine Negative (Negative); Color Urine Yellow (Yellow); Glucose Urine UA Negative (Negative); Ketones Urine Negative (Negative); Leukocyte Esterase Ur 2+ LEU/UL (Negative); Need Manual Microscopic Reviewed; Nitrate Urine Negative (Negative); Non Pathogenic Casts 0-2; Protein Urine Negative (Negative); RBC Urine 0-2 /hpf (0-2); Specific Grav Ur 1.011 (1.001-1.035); Squamous Epithelial Cell Urine None seen /hpf (Few); Urobilinogen Urine 0.2 mg/dL (<2.0); WBC Urine 0-5 /hpf; pH Urine 6.5 (5.0-9.0)
[2023-01-24 08:46] LABS: Add Urine Microscopic? YES
== END 2023-01-24 10:04 | disposition home or self-care (01) ==
PROVIDERS: Emergency Provider Emergency Medicine; PCP Internal Medicine
DX: K57.32 Diverticulitis of large intestine without perforation or abscess without bleeding (principal); K21.9 Gastro-esophageal reflux disease without esophagitis; Z85.3 Personal history of malignant neoplasm of breast; Z87.891 Personal history of nicotine dependence; Z90.10 Acquired absence of unspecified breast and nipple
CPT/HCPCS: 36415; 74177; 80053; 81001; 81025; 85025; 96374; 99284; J2270; Q9967

== ENCOUNTER 2023-03-25 11:47 | Emergency (ER) | payer BC, SELFPAY ==
[2023-03-25 12:09] VITALS: BP 132/77; PULSE 72; RESP 16; TEMP 36.7; O2SAT 98
--- NOTE | 2023-03-25 12:14 | ED.URI ---
HPI - URI/Sore Throat General Chief Complaint: Upper Respiratory Infection Stated Complaint: sinus inf Source: patient and RN notes reviewed History of Present Illness HPI Narrative: 52-year-old female presents to [facility] complaining of a possible sinus infection. Patient stated about a month ago she developed allergy like symptoms including a runny nose, cough, congestion, sinus pressure. Since then most of her symptoms have resolved than having intense frontal sinus pressure pain. Patient states that most her pain is well for eyes however she does state that she does have pain in her maxillary sinuses as well. Patient states the pressure is worse when she is bending over. Patient reports postnasal drip but denies any discharge coming from her nose. Patient denies any difficulty breathing, cough, fever, chills. patient has been using Flonase for symptom management without relief. Related Data Home Medications Medication Instructions Recorded Confirmed cetirizine 10 mg tablet 10 mg PO DAILY 07/07/19 03/25/23 fluticasone propionate 50 2 spray intranasal DAILY 07/07/19 03/25/23 mcg/actuation nasal spray,suspension (Flonase Allergy Relief) levonorgestrel 21 mcg/24 hours (8 1 device intrauterine ONCE 08/18/19 03/25/23 yrs) 52 mg intrauterine device (Mirena) tamoxifen 10 mg tablet 20 mg PO DAILY 10/14/19 03/25/23 Allergies Allergy/AdvReac Type Severity Reaction Status Date / Time Sulfa (Sulfonamide Allergy Severe Hives Verified 03/25/23 12:06 Antibiotics) Review of Systems Review of Systems: CONSTITUTIONAL: Denies fever, chills, or sweats. EYES: Denies visual changes, redness, or discharge. ENT: Denies otalgia and sore throat. Reports sinus pain and postnasal drip CARDIOVASCULAR: Denies chest pain, palpitations, or edema. RESPIRATORY: Denies cough or dyspnea. GASTROINTESTINAL: Denies abdominal pain, nausea, vomiting, or diarrhea. GENITOURINARY: Denies dysuria or hematuria. SKIN: Denies rash or itching. MUSCULOSKELETAL: Denies back pain, joint pain, or myalgia. NEUROLOGIC: Denies headache, numbness, or weakness. Pertinent positives per HPI. [facility] Past Medical History Medical History Allergies Anxiety Breast cancer GERD (gastroesophageal reflux disease) Migraine Surgical History Surgical History H/O mastectomy History of partial mastectomy History of sinus surgery 2007 Family History Family History Grandparent Breast cancer Father Diabetes mellitus Melanoma Hypertension Thyroid disease Gastrointestinal irritation Mother Breast cancer Social History Social History (Updated 09/27/22 @ 08:07 by Tanya Azevedo [facility]) Years smoked: 2 Smoking status: Never smoker Tobacco type: cigarettes Smoking end date: 09/17/96 Alcohol intake: current Drinks per week: 1 Substance use: never Substance use type: does not use Lack of Transportation: No Lack of Food: Never True Current Housing: I Have Housing Concerned About Future Housing: No Difficulty Paying Gas/Electric Bills: No Difficulty Paying for Meds: No Currently Unemployed: No Education: Bachelor's Degree Difficulty w/ Childcare or Family Care: No Living arrangements: with family Spiritual care concerns: No Comments At the time of my signature, I reviewed and agree with the nursing past medical, surgical, social, and family history. There is no relevant family history pertinent to the patient complaint. Exam Narrative: GENERAL: This is a well-nourished, well-developed patient, in no apparent distress. HEAD: normocephalic, atraumatic. EYES: Sclera clear/white. Vision is grossly intact. EARS: External ears normal, auditory canals clear and without drainage, TMs normal without perforation. Hea
== END 2023-03-25 12:22 | disposition home or self-care (01) ==
PROVIDERS: Emergency Provider Nurse Practitioner Family; PCP Internal Medicine
DX: J32.9 Chronic sinusitis, unspecified (principal); K21.9 Gastro-esophageal reflux disease without esophagitis; Z85.3 Personal history of malignant neoplasm of breast; Z90.10 Acquired absence of unspecified breast and nipple; Z87.891 Personal history of nicotine dependence
CPT/HCPCS: 99213; G0463

== ENCOUNTER 2023-04-25 08:36 | Outpatient (CLI) | payer BC, SELFPAY ==
--- NOTE | ~2023-04-25 | MM_ITS ---
EXAMINATION: MM screening yifan LT w verónica HISTORY: Screening left mammogram, history of right mastectomy TECHNIQUE: Craniocaudal and mediolateral oblique 3-D tomosynthesis images were obtained and synthetic 2-D images were generated. CAD analysis was submitted and interpreted. COMPARISON: 04/24/2022, 03/03/2021, 01/15/2020, 01/08/2020 BREAST PARENCHYMAL COMPOSITION: There are scattered areas of fibroglandular density. FINDINGS: No suspicious mass, calcification, or architectural distortion are identified to suggest ma lignancy. There has been no suspicious interval change. IMPRESSION: 1. No mammographic evidence of malignancy. 2. Recommend routine screening mammography in one year. BI-RADS Category 1: Negative Reviewed, dictated and finalized at location A.
== END 2023-04-25 08:37 | disposition home or self-care (01) ==
LOC: ANHIMG 08:40
PROVIDERS: PCP Internal Medicine; Visit Provider Internal Medicine Hematology & Oncology
DX: Z12.31 Encounter for screening mammogram for malignant neoplasm of breast (principal)
CPT/HCPCS: 77063; 77067

== ENCOUNTER 2023-05-31 16:44 | Emergency (ER) | payer BC, SELFPAY ==
--- NOTE | 2023-05-31 16:49 | ED.URI ---
HPI - URI/Sore Throat General Chief Complaint: Upper Respiratory Infection Stated Complaint: SINUS CONGESTION Time Seen by Provider: 05/31/23 16:46 Source: patient Mode of arrival: ambulatory Limitations: no limitations History of Present Illness HPI Narrative: Hilaria is a 52-year-old female patient presenting to the clinic today with complaints of sinus congestion, headache, and sinus pressure x 1 month. States she was seen for similar issue in March and the antibiotics helped. She reports no fever or chills. MD elicited complaint: sore throat and nasal congestion Related Data Home Medications Medication Instructions Recorded Confirmed cetirizine 10 mg tablet 10 mg PO DAILY 07/07/19 05/31/23 fluticasone propionate 50 2 spray intranasal DAILY 07/07/19 05/31/23 mcg/actuation nasal spray,suspension (Flonase Allergy Relief) levonorgestrel 21 mcg/24 hours (8 1 device intrauterine ONCE 08/18/19 05/31/23 yrs) 52 mg intrauterine device (Mirena) tamoxifen 10 mg tablet 20 mg PO DAILY 10/14/19 05/31/23 [id number]-hsqdjcmfpfefp-ayhiysxg cap 05/31/23 50 mg-300 mg-40 mg capsule Allergies Allergy/AdvReac Type Severity Reaction Status Date / Time Sulfa (Sulfonamide Allergy Severe Hives Verified 05/31/23 16:51 Antibiotics) Review of Systems Review of Systems: Pertinent positives per HPI. Patient denies any fever, chills, rash, visual changes, dizziness, cough, shortness of breath, chest pain, palpitations, nausea, vomiting, diarrhea, constipation, abdominal pain, or any urinary issues. PMFSH Past Medical History Medical History Allergies Anxiety Breast cancer GERD (gastroesophageal reflux disease) Migraine Surgical History Surgical History H/O mastectomy History of partial mastectomy History of sinus surgery 2007 Family History Family History Grandparent Breast cancer Father Diabetes mellitus Melanoma Hypertension Thyroid disease Gastrointestinal irritation Mother Breast cancer Social History Social History Years smoked: 2 Smoking status: Never smoker Tobacco type: cigarettes Smoking end date: 09/17/96 Alcohol intake: current Drinks per week: 1 Substance use: never Substance use type: does not use Lack of Transportation: No Lack of Food: Never True Current Housing: I Have Housing Concerned About Future Housing: No Difficulty Paying Gas/Electric Bills: No Difficulty Paying for Meds: No Currently Unemployed: No Education: Bachelor's Degree Difficulty w/ Childcare or Family Care: No Living arrangements: with family Spiritual care concerns: No Comments At the time of my signature, I reviewed and agree with the nursing past medical, surgical, social, and family history. There is no relevant family history pertinent to the patient complaint. Exam Narrative: General: Well-developed, well nourished, in no apparent distress Head: Normocephalic, atraumatic Eyes: Pupils equally round and reactive to light bilaterally, EOM intact, sclera and conjunctive clear, no discharge, lids normal Ears: TMs intact and congested, ear canals clear, no drainage, grossly hearing normal. Nose: Nares patent, clear nasal discharge, moderate inflammation, maxillary and frontal sinus tenderness. Mouth: Oral pharynx without lesions or masses, good dentition, MMM. Neck: Supple, trachea midline, no enlargement of anterior or posterior cervical nodes, no thyroid masses or goiter palpable. Cardio: Regular rate and rhythm, s1 and s2 normal, no murmur appreciated. Resp: Clear to auscultation bilaterally, no rhonchi, rales, wheezing or rubs Course Course Emergency Course: Portions of this record may have been created with
[2023-05-31 16:55] VITALS: BP 114/72; PULSE 69; RESP 16; TEMP 36.3
== END 2023-05-31 17:10 | disposition home or self-care (01) ==
PROVIDERS: Emergency Provider Nurse Practitioner Family; PCP Internal Medicine
DX: J01.90 Acute sinusitis, unspecified (principal); Z87.891 Personal history of nicotine dependence; K21.9 Gastro-esophageal reflux disease without esophagitis; F41.9 Anxiety disorder, unspecified; Z85.3 Personal history of malignant neoplasm of breast; Z90.10 Acquired absence of unspecified breast and nipple
CPT/HCPCS: 99213; G0463

== ENCOUNTER 2023-07-07 12:04 | Emergency (ER) | payer BC, SELFPAY ==
--- NOTE | ~2023-07-07 | XR_ITS ---
EXAMINATION: XR chest 2V 07/07/2023 12:34 INDICATION: Cough for one week PROCEDURE: 2 view chest COMPARISON: 01/06/2019 FINDINGS: The lungs are clear. The cardiomediastinal silhouette is within normal limits. There are no pleural effusions. There is no pneumothorax suspected. There are surgical clips overlying the ri ght upper thorax. IMPRESSION: 1: NO ACUTE CARDIOPULMONARY DISEASE. Reviewed, dictated and finalized at location A.
[2023-07-07 12:25] VITALS: BP 133/84; PULSE 82; RESP 16; TEMP 37.2; O2SAT 97
--- NOTE | 2023-07-07 12:48 | ED.GENADULT ---
HPI - General Adult General Chief complaint: Upper Respiratory Infection Stated complaint: Cough,Congestion Source: patient Mode of arrival: ambulatory Limitations: no limitations History of Present Illness HPI narrative: Patient presents for evaluation of sick symptoms for the last 6 days. Symptoms include sinus congestion, thick green drainage from the nares, sore throat, productive cough of green sputum and shortness of breath only during coughing episodes. She denies any fever, chills, nausea, vomiting, diarrhea. Her granddaughter recently had RSV. She has been taking afjr-wzz-sdqtuuv cough and cold medication with some improvement in her symptoms or after. She has a history of breast cancer status post mastectomy, currently in remission. Related Data Home Medications Medication Instructions Recorded Confirmed cetirizine 10 mg tablet 10 mg PO DAILY 07/07/19 07/07/23 fluticasone propionate 50 2 spray intranasal DAILY 07/07/19 07/07/23 mcg/actuation nasal spray,suspension (Flonase Allergy Relief) levonorgestrel 21 mcg/24 hours (8 1 device intrauterine ONCE 08/18/19 07/07/23 yrs) 52 mg intrauterine device (Mirena) tamoxifen 10 mg tablet 20 mg PO DAILY 10/14/19 07/07/23 pleocfizik-qkushyasoarbp-hltlcgef 1 cap PO DAILY PRN Pain, Mild 05/31/23 07/07/23 50 mg-300 mg-40 mg capsule Allergies Allergy/AdvReac Type Severity Reaction Status Date / Time Sulfa (Sulfonamide Allergy Severe Hives Verified 07/07/23 12:21 Antibiotics) Review of Systems Review of Systems: CONSTITUTIONAL: Denies fever, chills, or sweats. EYES: Denies visual changes, redness, or discharge. ENT: reports sore throat, sinus congestion thick green drainage from the nares. Denies otalgia. CARDIOVASCULAR: Denies chest pain, palpitations, or edema. RESPIRATORY: Reports productive cough of green sputum with shortness of breath only during coughing episodes. GASTROINTESTINAL: Denies abdominal pain, nausea, vomiting, or diarrhea. GENITOURINARY: Denies dysuria or hematuria. SKIN: Denies rash or itching. MUSCULOSKELETAL: Denies back pain, joint pain, or myalgia. NEUROLOGIC: Denies headache, numbness, dizziness, or weakness. PSYCHIATRIC: Denies anxiety or depression. [facility] Past Medical History Medical History Allergies Anxiety Breast cancer GERD (gastroesophageal reflux disease) Migraine Surgical History Surgical History H/O mastectomy History of partial mastectomy History of sinus surgery 2007 Family History Family History Grandparent Breast cancer Father Diabetes mellitus Melanoma Hypertension Thyroid disease Gastrointestinal irritation Mother Breast cancer Social History Social History Smoking end date: 09/17/96 Alcohol intake: current Drinks per week: 1 Substance use: never Substance use type: does not use Lack of Transportation: No Lack of Food: Never True Current Housing: I Have Housing Concerned About Future Housing: No Difficulty Paying Gas/Electric Bills: No Difficulty Paying for Meds: No Currently Unemployed: No Education: Bachelor's Degree Difficulty w/ Childcare or Family Care: No Living arrangements: with family Spiritual care concerns: No Exam Narrative: GENERAL: Well-appearing, well-nourished, and in no acute distress. HEAD: Normocephalic, atraumatic. EYES: PERRLA and EOMI. ENT: Nares clear, no rhinorrhea or epistaxis. Mucous membranes moist. Oropharynx without tonsillar hypertrophy exudate or other lesions. Bilateral TMs pearly lu nonbulging NECK: Supple. No adenopathy or masses. No carotid bruits or JVD CHEST: Mild wheezing noted in posterior lung poole bilaterally. Occasional cough present on exam
== END 2023-07-07 13:44 | disposition home or self-care (01) ==
PROVIDERS: Emergency Provider Nurse Practitioner; PCP Internal Medicine
DX: J01.90 Acute sinusitis, unspecified (principal); Z20.822 Contact with and (suspected) exposure to COVID-19; Z87.891 Personal history of nicotine dependence; Z90.10 Acquired absence of unspecified breast and nipple; K21.9 Gastro-esophageal reflux disease without esophagitis; Z85.3 Personal history of malignant neoplasm of breast; F41.9 Anxiety disorder, unspecified
CPT/HCPCS: 71046; 87081; 87426; 87804; 87880; 99213; C9803; G0463

== ENCOUNTER 2023-07-20 13:17 | Outpatient (CLI) | payer BC, SELFPAY ==
[2023-07-20 13:28] LABS: Basophils Percent Auto 0.6 % (0.2-1.2); Eosinophils Absolute Auto 0.1 K/mm3 (0-0.3); Eosinophils Percent Auto 1.3 % (0-4.4); Hematocrit 40.5 % (37.0-47.0); Immature Granulocyte Absolute 0.01 K/mm3 (0.00-0.031); Immature Granulocyte Percent A 0.2 % (0-0.5); Lymphocytes Absolute Auto 1.98 K/mm3 (0.9-3.2); Lymphocytes Percent Auto 31.2 % (18.3-44.2); Mean Corpuscular HGB Conc 32.1 g/dl (32-36); Mean Corpuscular Hemoglobin 29.3 pg (26-34); Mean Corpuscular Volume 91.2 fl (80-100); Mean Platelet Volume 10.6 fl (7.4-10.4); Monocytes Absolute Auto 0.4 K/mm3 (0.1-0.6); Neutrophils Absolute Auto 3.9 K/mm3 (1.3-6.7); Neutrophils Percent Auto 60.7 % (45.5-73.1); Platelet Count Result 295 k/mm3 (150-375); Red Blood Count 4.44 M/mm3 (4.2-5.4); Red Cell Distribution Width 12.4 % (11.5-14.5); White Blood Count 6.4 K/mm3 (4.5-10.0)
[2023-07-20 16:53] LABS: Alanine Aminotransferase 17 U/L (6-35); Albumin Level 4.1 g/dL (3.5-5.1); Alkaline Phosphatase 64 U/L (38-126); Anion Gap 6 mmol/L (8-16); Aspartate Amino Transferase 20 U/L (14-36); Bilirubin,Total 0.4 mg/dL (0.2-1.3); Blood Urea Nitrogen 14 mg/dL (7-17); Calcium 8.8 mg/dL (8.4-10.2); Carbon Dioxide 28 mmol/L (22-30); Chloride 103 mmol/L (98-107); Estimated Glomerular Filt Rate > 60; Glucose 122 mg/dL (65-110); Potassium 4.2 mmol/L (3.4-5.0); Sodium 137 mmol/L (137-145)
[2023-07-24 13:51] LABS: CA 15-3 16 U/mL (<32)
== END 2023-07-20 13:18 | disposition home or self-care (01) ==
LOC: ANHLAB 13:18
PROVIDERS: PCP Internal Medicine; Visit Provider Internal Medicine Hematology & Oncology
DX: C50.411 Malignant neoplasm of upper-outer quadrant of right female breast (principal); Z17.0 Estrogen receptor positive status [ER+]
CPT/HCPCS: 36415; 80053; 85025; 86300

== ENCOUNTER 2023-08-23 12:14 | Emergency (ER) | payer BC, SELFPAY ==
[2023-08-23 12:32] VITALS: BP 119/82; PULSE 109; RESP 16; TEMP 38.4; O2SAT 95
--- NOTE | 2023-08-23 12:35 | ED.URI ---
HPI - URI/Sore Throat General Chief Complaint: Upper Respiratory Infection Stated Complaint: SORE THROAT/DRAINAGE/COUGH History of Present Illness HPI Narrative: 52-year-old female presented for complaint of chest congestion, cough, and sore throat. Onset yesterday. Denies shortness of breath, wheezing, nausea, vomiting, diarrhea, fevers or chills. Denies known sick contacts. She took DayQuil this morning. Related Data Home Medications Medication Instructions Recorded Confirmed cetirizine 10 mg tablet 10 mg PO DAILY 07/07/19 08/23/23 fluticasone propionate 50 2 spray intranasal DAILY 07/07/19 08/23/23 mcg/actuation nasal spray,suspension (Flonase Allergy Relief) levonorgestrel 21 mcg/24 hours (8 1 device intrauterine ONCE 08/18/19 08/23/23 yrs) 52 mg intrauterine device (Mirena) tamoxifen 10 mg tablet 20 mg PO DAILY 10/14/19 08/23/23 zysbksaxxu-zckqvbtpjicse-yqcfpmug 1 cap PO DAILY PRN Pain, Mild 05/31/23 08/23/23 50 mg-300 mg-40 mg capsule Allergies Allergy/AdvReac Type Severity Reaction Status Date / Time Sulfa (Sulfonamide Allergy Severe Hives Verified 08/23/23 12:20 Antibiotics) Review of Systems Review of Systems: CONSTITUTIONAL: Denies body aches, fever, chills, or sweats. EYES: Denies visual changes, redness, or discharge. ENT: Reports sore throat Denies rhinorrhea, congestion, or otalgia. CARDIOVASCULAR: Denies chest pain, palpitations, or edema. RESPIRATORY: Reports cough Denies dyspnea. GASTROINTESTINAL: Denies abdominal pain, nausea, vomiting, or diarrhea. SKIN: Denies rash, itching, or wounds. MUSCULOSKELETAL: Denies back pain, joint pain, or myalgia. NEUROLOGIC: Denies headache PMFSH Past Medical History Medical History Allergies Anxiety Breast cancer GERD (gastroesophageal reflux disease) Migraine Surgical History Surgical History H/O mastectomy History of partial mastectomy History of sinus surgery 2007 Family History Family History Grandparent Breast cancer Father Diabetes mellitus Melanoma Hypertension Thyroid disease Gastrointestinal irritation Mother Breast cancer Social History Social History Smoking end date: 09/17/96 Alcohol intake: current Drinks per week: 1 Substance use: never Substance use type: does not use Lack of Transportation: No Lack of Food: Never True Current Housing: I Have Housing Concerned About Future Housing: No Difficulty Paying Gas/Electric Bills: No Difficulty Paying for Meds: No Currently Unemployed: No Education: Bachelor's Degree Difficulty w/ Childcare or Family Care: No Living arrangements: with family Spiritual care concerns: No Exam Narrative: GENERAL: well-appearing, no acute distress. EYES: conjunctivae clear ENT: Mucous membranes moist. TMs pearly lu with clear effusion bilaterally; no tragal tenderness. Oropharynx mildly erythematous without lesions. Tonsils enlarged 1+without exudate. No drooling, no hoarseness, no trismus, uvula midline. No tripod positioning, hot potato voice, or soft palate swelling. NECK: Supple. No lymphadenopathy CHEST: Clear to auscultation, breath sounds equal. No respiratory distress, speaks in full sentences. HEART: Regular rate and rhythm. No murmur heard. SKIN: Warm, dry, no rash. NEURO: Alert and oriented x3. Course Course Emergency Course: Patient is aware of diagnosis, understands and agrees to treatment plan. Anticipatory guidance given. Patient agrees to follow-up as directed and is aware of reasons to seek care at the emergency department. Portions of this record may have been created with voice recognition software Level of Care: Express Care Visit Vital Signs Vital signs: Vital Signs
== END 2023-08-23 12:52 | disposition home or self-care (01) ==
PROVIDERS: Emergency Provider Nurse Practitioner Family; PCP Internal Medicine
DX: B34.9 Viral infection, unspecified (principal); Z20.822 Contact with and (suspected) exposure to COVID-19; Z87.891 Personal history of nicotine dependence; K21.9 Gastro-esophageal reflux disease without esophagitis; Z85.3 Personal history of malignant neoplasm of breast; F41.9 Anxiety disorder, unspecified
CPT/HCPCS: 87081; 87426; 87804; 87880; 99213; C9803; G0463

== ENCOUNTER 2024-04-23 09:56 | Outpatient (CLI) | payer BC, SELFPAY ==
[2024-04-23 13:23] LABS: LDL Cholesterol Direct 108 mg/dL
[2024-04-23 13:45] LABS: Cholesterol 188 mg/dL (0-200); HDL Direct 52 mg/dL; Triglycerides 171 mg/dL (<150)
[2024-04-23 15:18] LABS: Vitamin D 25 Hydroxy 21.9 ng/mL
== END 2024-04-23 09:57 | disposition home or self-care (01) ==
LOC: ANHGOSHLAB 09:57
PROVIDERS: PCP Internal Medicine; Visit Provider Nurse Practitioner
DX: R63.5 Abnormal weight gain (principal); R73.9 Hyperglycemia, unspecified; Z13.220 Encounter for screening for lipoid disorders; E55.9 Vitamin D deficiency, unspecified
CPT/HCPCS: 36415; 80061; 82306; 83036; 84443

== ENCOUNTER 2024-04-28 09:34 | Outpatient (CLI) | payer BC, SELFPAY ==
--- NOTE | ~2024-04-28 | MM_ITS ---
EXAMINATION: MM screening yifan LT w verónica HISTORY: Screening TECHNIQUE: Craniocaudal and mediolateral oblique 3-D tomosynthesis images were obtained and synthetic 2-D images were generated. CAD analysis was submitted and interpreted. COMPARISON: Comparison to multiple prior studies sequentially, with oldest reviewed study dated 01/07. BREAST PARENCHYMAL COMPOSITION: Not dense: There are scattered areas of fibroglandular density. FINDINGS: There is no evidence of suspicious mass, calcification, or architectural distortion to sugg est malignancy in either breast. There has been no suspicious interval change. IMPRESSION: 1. No mammographic evidence of malignancy. 2. Recommend routine screening mammography in one year. BI-RADS Category 1: Negative Reviewed, dictated and finalized at location B.
== END 2024-04-28 09:35 | disposition home or self-care (01) ==
LOC: ANHIMG 09:35
PROVIDERS: PCP Internal Medicine; Visit Provider Internal Medicine Hematology & Oncology
DX: Z12.31 Encounter for screening mammogram for malignant neoplasm of breast (principal)
CPT/HCPCS: 77063; 77067

== ENCOUNTER 2024-07-23 08:29 | Outpatient (CLI) | payer BC, SELFPAY ==
[2024-07-23 08:48] LABS: Basophils Percent Auto 0.9 % (0.2-1.2); Eosinophils Absolute Auto 0.1 K/mm3 (0-0.3); Eosinophils Percent Auto 2.6 % (0-4.4); Hematocrit 40.7 % (37.0-47.0); Hemoglobin 13.3 g/dL (12.0-15.0); Lymphocytes Absolute Auto 1.28 K/mm3 (0.9-3.2); Lymphocytes Percent Auto 27.8 % (18.3-44.2); Mean Corpuscular HGB Conc 32.7 g/dl (32-36); Mean Corpuscular Hemoglobin 29.4 pg (26-34); Mean Platelet Volume 10.6 fl (7.4-10.4); Monocytes Absolute Auto 0.4 K/mm3 (0.1-0.6); Monocytes Percent Auto 8.9 % (2.6-8.5); Neutrophils Absolute Auto 2.8 K/mm3 (1.3-6.7); Neutrophils Percent Auto 59.8 % (45.5-73.1); Platelet Count Result 225 k/mm3 (150-375); Red Blood Count 4.52 M/mm3 (4.2-5.4); Red Cell Distribution Width 12.2 % (11.5-14.5); White Blood Count 4.6 K/mm3 (4.5-10.0)
[2024-07-23 09:16] LABS: Alanine Aminotransferase 15 U/L (6-35); Albumin Level 4.3 g/dL (3.5-5.1); Alkaline Phosphatase 78 U/L (38-126); Anion Gap 9 mmol/L (4-12); Aspartate Amino Transferase 23 U/L (14-36); Bilirubin,Total 0.4 mg/dL (0.2-1.3); Blood Urea Nitrogen 15 mg/dL (7-17); Calcium 9.1 mg/dL (8.4-10.2); Carbon Dioxide 26 mmol/L (22-30); Chloride 106 mmol/L (98-107); Estimated Glomerular Filt Rate > 60; Glucose 98 mg/dL (65-110); Potassium 3.9 mmol/L (3.4-5.0); Sodium 141 mmol/L (137-145)
[2024-07-25 04:33] LABS: CA 15-3 15 U/mL (<32)
== END 2024-07-23 08:30 | disposition home or self-care (01) ==
PROVIDERS: PCP Internal Medicine; Visit Provider Internal Medicine Hematology & Oncology
DX: C50.411 Malignant neoplasm of upper-outer quadrant of right female breast (principal); Z17.0 Estrogen receptor positive status [ER+]
CPT/HCPCS: 36415; 80053; 85025; 86300

== ENCOUNTER 2025-01-26 10:05 | Outpatient (CLI) | payer OTHER, SELFPAY ==
--- OUTSIDE RECORDS SUMMARY | 2025-01-26 10:11 | XMS_ITS | Data Portability ---
Author Organization [place] - [facility] , [facility] Address [address] [place] [address] Assessment Encounter Date Assessment Date Assessment LastModified by Organization Details LastModified Time 11/03/2024 11/03/2024 Provided counseling/treatme nt recommendations as noted below: Education provided on relevant diagnosis Medication Options: DD: viral sinusitis vs acute bacterial sinusitis Acute bacterial rhinosinusitis suspected due to prolonged duration/increased severity of symptoms. -Take augmentin as prescribed. Use of probiotic or eat yogurt daily while on antibiotic to prevent any possible side effects including diarrhea and/or yeast infection discussed with patient. -Continue mucinex, flonase, xyzal -Use of Tylenol and/or Ibuprofen as needed, as directed for fevers, headaches, or pain -Use of humidifier -Saline nasal rinses as directed -Increase fluid intake -Rest -Follow up for continued or worsening in symptoms with your primary care provider or Urgent Care -Report to the emergency department for SOB, wheezing, continued fevers, or worsening in symptoms that are not relieved with recommended medications and treatments Counseled on the importance of follow up if symptoms not improving with recommended treatment plan. Patient to be seen for repeat evaluation if symptoms worsen, counseled on red flag symptoms to indicate need for emergent follow up. Patient expressed understanding and agreement with treatment plan as outlined. [email or web address] Not available 11/03/2024 15:00:09 Plan of Treatment Reminders Order Date Submit Date Provider Last Modified By Organization Details Last Modified Time Details Appointments None recorded. Lab None recorded. Referral None recorded. Procedures None recorded. Surgeries None recorded. Imaging None recorded. Medication Orders amoxicillin 875 mg-potassiu m clavulanate 125 mg tablet 2024 025 [facility]/Pharmacy #[id number], [address] [place], [address], 15:00:13 Patient TargetsNo targets recorded. Patient InstructionsNo instructions recorded. Reason for Referral None Reported. Procedures Surgical History Date Name Laterality Status Provider Name and Address Organization Details Recorded Time excision of breast completed KIERA Ricardo 1 [facility] [address], [place], [address], [place] [facility] 11/03/2024 14:57:27 Imaging Results None recorded. Procedure Notes None recorded. Medical Equipment None Reported. Allergies Allergen ID Allergen Name Allergen Category Reaction Reaction Severity Criticality Documentation Date Start Date Code Code System Note Provider Name and Address Organization Details Recorded Time [id number] Substance with sulfonami de structure and antibacte rial mechanism of action (substanc e) medicatio n Not available Not available Not available 11/03/2024 [id number] SNOMED Not Available Included [facility] 14:54:16 Medications Name Sig Start Date Stop Date Status Note LastModified by Organization Details LastModified Time amoxicillin 875 mg-potassium clavulanate 125 mg tablet Take 1 tablet every 12 hours by oral route for 7 days. 025 active Not Available Not Available Not Avai lable sertraline active ADDED BY AMARI T: Not Available Not Available Not Available propranolol active ADDED BY AMARI T: Not Available Not Available Not Available tamoxifen active ADDED BY AMARI T: Not Available Not Available Not Available Vitals None Recorded Social History None recorded. Functional Status None recorded. Mental Status None recorded. Family History Nothing Reported. Medical History No medical history recorded. Gynecological HistoryNo gynecological history recorded. Obstetrics History GPAL:G 0 P 0 0 0 0 Past Encounters Encounter ID Performer Location Encounter Start Date Encounter Closed Date Diagnosis/Indication Diagnosis SNOMED-CT Code Diagnosis ICD10 Code Diagnosis Note [id number] KIERA Ricardo [facility] [address] [place] [address] 11/03/2024 14:54:43 11/03/2024 21:01:30 Acute bacterial sinusitis 49041311 J01.90 Health Concerns Section Related Observation LastModified by Organization Detai ls LastModified Time None Recorded Concern Status LastModified by Organization Details LastModified Time None Recorded Advance Directives Directive None Recorded Payers Insurance Date Sequence Insurance Name Policy Number Policy Villaseñor Covered Member ID Villaseñor Member ID Guarantor Name 11/03/2024 3 *SELF PAY* [id number] Hilaria Goncalves [id number] Hilaria Goncalves 11/03/2024 1 *SELF PAY* [employer] arteaga Ivanna 11/03/2024 2 [facility] [id number] Hilaria Goncalves [id number] Hilaria Goncalves 11/10/2024 1 [facility] [id number] Hilaria Fordis [id number] Hilaria Fordis 11/03/2024 [employer] [id number] Hilaria Goncalves [id number] Hilaria Goncalves Notes Date Note Type Note Provider Name and Address Organization Details Recorded Time 11/03/2024 text/html Call connected, patient greeted. Patient name, , telephone number and location verified verbally with the patient. Telemedicine limitations reviewed, answered all questions the patient had about the telehealth interaction, and verbal consent obtained to treat. Clinician attests they are physically located in the following state at the time of visit: [place] CC:congestion HPI:53 year old female patient presents today for nasal congestion, sinus pressure, PND, and cough starting 1-2 months agoOTC/prescription medications and/or at home treatments include: mucinex D, saline rinses, flonase, xyzal with minimal short-term reliefPatient denies: fevers, sweats, chills, shortness of breath, or wheezing KIERA Ricardo 1 [facility] [address], [place], [address], [place] [facility] 11/03/2024 15:11:11 OBGyn Episode No OBEpisode recorded.
--- OUTSIDE RECORDS SUMMARY | 2025-01-26 10:11 | XMS_ITS | Clinical Summary ---
Author Organization [facility] Address [address] [place] [address] Care Team Providers Care Bottle Inspector Name Role Phone Davis Stockton DO Primary Care Provider Allergies Active Allergy Reactions Criticality Noted Date Comments Sulfa (Sulfonamide Antibiotics) Hives High 11/16 Medications acetaminophen- caffeine-butal bital (FIORICET) 300-40-50 mg capsule 9 Active fluticasone propionate (FLONASE) 50 mcg/spray [place], Suspension nasal inhaler Administer 2 Sprays in each nostril daily. Active cetirizine (ZyrTEC) 10 mg tablet Take 10 mg by mouth daily. Active levonorgestrel (MIRENA) 20 mcg/24 hours (5 yrs) 52 mg IUD Active lidocaine-pril ocaine (EMLA) 2.5-2.5 % Cream Apply to affected area see administration instructions. 30 Gram 1 9 Active ondansetron (ZOFRAN ODT) 4 mg Tablet, Rapid Dissolve Take 1 Tablet (4 mg) by mouth every 8 hours as needed for Nausea/Emesis Dissolve tablet on top of tongue, then swallow with saliva.. 30 Tablet 1 9 Active sertraline (ZOLOFT) 100 mg tablet Take 100 mg by mouth daily. Active hydrOXYzine HCL (ATARAX) 10 mg tablet TAKE 1 TABLET BY MOUTH TWICE A DAY NEEDED FOR ANXIETY 0 Active propranoloL (INDERAL LA) 60 mg Long Acting 24 hour capsule TAKE ONE CAPSULE BY MOUTH AT BEDTIME 1 Active tamoxifen (NOLVADEX) 20 mg tabletIndicati ons:Malignant neoplasm of upper-outer quadrant of right breast in female, estrogen receptor positive (CMS/HCC) TAKE 1 TABLET BY MOUTH EVERY DAY 90 Tablet 3 5 Active Active Problems Problem Noted Date Diagnosed Date History of antineoplastic chemotherapy 9 Muscle spasm 03/26/2019 Acquired absence of right breast 02/21/2019 Malignant neoplasm of upper- outer quadrant of right breast in female, estrogen receptor positive 12/10/2018 Resolved Problems Problem Noted Date Diagnosed Date Resolved Date Seroma of breast 03/19/2019 07/02/2019 Encounters Date Type Department Care Team Description 12/30/2024 External Device Data [facility] ABSTRACTION Provider, Abstract 11/25/2024 External Device Data [facility] ABSTRACTION Provider, Abstract 11/25/2024 External Device Data [facility] ABSTRACTION Provider, Abstract 11/18/2024 External Device Data [facility] ABSTRACTION Provider, Abstract 11/05/2024 External Device Data [facility] ABSTRACTION Provider, Abstract 2024 External Device Data [facility] ABSTRACTION Provider, Abstract from Last 3 Months Immunizations Immunization Administration Dates Next Due INFLUENZA VACCINE QUADRIVALENT 6 MOS UP PF IM Family History Medical History Relation Name Comments Depression Mother Healthy Mother Healthy Sister 1 Healthy Sister 2 Relation Name Status Comments Father Mother Alive Sister 1 Alive Sister 2 Alive Social History Tobacco Use Types Packs/Day Years Used Date Smoking Tobacco: Never Smokeless Tobacco: Never Tobacco Cessation:Counseling Given: Not Answered Comments:socially 15 years ago Alcohol Use Standard Drinks/Week Comments Yes 0 (1 standard drink = 0.6 oz pur e alcohol) Comments No Sex and Gender Information Value Date Recorded Sex Assigned at Not on file Legal Sex Female 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 AIDE Gender Identity Not on file Sexual Orientation Not on file Last Filed Vital Signs Vital Sign Reading Time Taken Comments Blood Pressure 108/64 08/01/2024 9:22 AM NURSES AIDE Pulse 60 08/01/2024 9:22 AM NURSES AIDE Temperature 36.6 C (97.8 F) 08/01/2024 9:22 AM NURSES AIDE Respiratory Rate 16 08/01/2024 9:22 AM NURSES AIDE Oxygen Saturation 96% 08/01/2024 9:22 AM NURSES AIDE Inhaled Oxygen Concentration - - Weight 114.9 kg (253 lb 6.4 oz) 08/01/2024 9:22 AM NURSES AIDE Height 170.2 cm (5' 7 ) 06/01/2022 11:0 8 AM CDT Body Mass Index 39.69 06/01/2022 11:08 AM CDT Plan of Treatment Upcoming Encounters Date Type Department Care Team (Late st Contact Info) Description 01/30/2025 9:15 AM CDT Office Visit [facility] Oncology and Hematology - [place] [address] [facility] [address] [place] [address] Wei Nagel MD [address] [facility] [address] [place] [address] Health Maintenance Due Date Last Done Comments Pre-Diabetes and Diabetes Screening 1971 DTAP/TDAP/TD VACCINES (1 - Tdap) 1990 HEPATITIS B VACCINES (1 of 3 - 19+ 3-dose series) 1990 HPV/Cotest (21-29) 1992 CERVICAL CANCER SCREENING 2001 HPV/Cotest (30-65) 2001 PAP SMEAR 2001 COLORECTAL SCREENING 2016 Colorectal Cancer Screening 2016 FIT-DNA Q 3 years 2016 FIT/FOBT Q 1 year 2016 Flex Sig/CT Colonography Q 5 years 2016 ZOSTER VACCINE (1 of 2) 2021 INFLUENZA VACCINE (#1) 2024 07/03/2018 Preventative Visit- Commercial 09/17/2024 BREAST CANCER SCREENING 04/28/2025 04/28/20 24, 04/25/2023, 03/03/2021, Additional history exists Procedures Procedure Name Priority Date/Time Associated Diagnosis Comments MAMMO SCREENING UNILATERAL LEFT Routine 04/28/2024 1:55 PM CDT from Last 3 Months or Most Recently Relevant to Health Maintenance Results * MAMMO SCREENING UNILATERAL LEFT (04/28/2024 1:55 PM CDT) Anatomical Region Laterality Modality Breast Left Mammography Wei Nagel MD MAMMO ORDERABLES Final Result from Last 3 Months or Most Recently Relevant to Health Maintenance Insurance [facility] [employer] [facility] [employer] Care Teams Bottle Inspector Relationship Specialty Start Date End Date Davis Stockton DO [address] [address] PCP - General Internal Medicine 11/18/18
--- OUTSIDE RECORDS SUMMARY | 2025-01-26 10:11 | XMS_ITS | Referral Summary ---
Author Organization [facility] [place] [address] Address [address] [place] [address] Care Team Providers Care Hotel Security Officer Name Role Phone Aldo Stockton DO Primary Care Provider [phone] Allergies Active Allergy Reactions Criticality Noted Date Comments Sulfa (Sulfonamide Antibiotics) Hives High 11/16 Medications cetirizine (ZyrTEC) 10 mg tablet Take 1 tablet (10 mg total) by mouth Active fluticasone propionate (FLONASE) 50 mcg/actuation nasal spray Administer 2 sprays into affected nostril(s) Active propranolol LA (INDERAL LA) 60 mg 24 hr capsule Take 1 capsule (60 mg total) by mouth nightly 1 Active sertraline (ZOLOFT) 100 mg tablet Take 1.5 tablets (150 mg total) by mouth daily 2 Active tamoxifen (NOLVADEX) 20 mg tablet Take 1 tablet (20 mg total) by mouth daily 9 Active butalbital-acet aminophen-caffe ine (FIORICET) 50-300-40 mg per capsule TAKE ONE CAPSULE BY MOUTH ONCE DAILY NEEDED FOR MILD PAIN Active cholecalciferol (VITAMIN D-3) 50,000 unit capsule Take 1 capsule (50,000 Units total) by mouth once a week 4 Active benzonatate (TESSALON) 200 mg capsuleIndicati ons:Acute cough Take 1 capsule (200 mg total) by mouth 3 (three) times a day as needed for cough keep tessalon out of reach of children, especially children under the age of 10, due to possible serious risk such as if ingested by children under the age of 10. 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 Gender Identity Not on file Sexual Orientation Not on file Last Filed Vital Signs Vital Sign Reading Time Taken Comments Blood Pressure 120/68 05/09/2024 10:06 AM CDT Pulse 68 05/09/2024 10:06 AM CDT Temperature 37 C (98.6 F) 05/09/2024 10:06 AM CDT Respiratory Rate 18 05/09/2024 10:06 AM CDT Oxygen Saturation 98% 05/09/2024 10:06 AM CDT Inhaled Oxygen Concentration - - Weight 113.4 kg (250 lb) 05/09/2024 10:06 AM CDT Height 170.2 cm (5' 7 ) 05/09/2024 10:06 AM CDT Body Mass Index 39.16 05/09/2024 10:06 AM CDT Plan of Treatment Not on file Insurance [facility] [address] CHOICE ANTH ACCESS CHOICE Care Teams Hotel Security Officer Relationship Specialty Start Date End Date Aldo Stockton DO PCP - General Internal Medicine 01/02/19
--- OUTSIDE RECORDS SUMMARY | 2025-01-26 10:11 | XMS_ITS | Clinical Summary ---
Author Organization [facility] [address] Address [address] [place] [address] Care Team Providers Care Hydrometeorology Teacher Name Role Phone Aldo Stockton DO Primary Care Provider [phone] Allergies Active Allergy Reactions Criticality Noted Date [...] under the age of 10. 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 Gender Identity Not on file Sexual Orientation Not on file Obstetrics History Last Filed Vital Signs Vital Sign Reading [...] 05/09/2024 10:06 AM CDT Plan of Treatment Health Maintenance Due Date Last Done Comments Breast Cancer Screening-Mammogram 1971 Cervical Cancer Screening 1971 Colon Cancer Screening-Colonoscopy 1971 Depression Screening 1971 Hepatitis C Screening 1971 DTaP/Tdap/Td Vaccine (1 - Tdap) 1982 Hepatitis B Screening 1989 Regular Well Visit/Exam 18-64 1989 Pneumococcal vaccine <65 (1 of 2 - PCV) 1990 Zoster Vaccine (1 of 2) 1990 Covid-19 Vaccine (4 - season) 2024 09/14/2021, 01/20/2021, 12/30/2020 Influenza Vaccine (#1) 2024 , 07/03/2018, 07/01/2015 Insurance ANTHEM ACCESS CHOICE ANTHEM ACCESS CHOICE Care Teams Hydrometeorology Teacher Relationship Specialty Start Date End Date Aldo Stockton DO PCP - General Internal Medicine 01/02/19
--- OUTSIDE RECORDS SUMMARY | 2025-01-26 10:11 | XMS_ITS | Clinical Summary ---
Author Organization [facility] [employer] Address [address] [place] [address] Care Team Providers Care Optical Engineering Manager Name Role Phone Davis Stockton DO Primary Care Provider +1 [phone] Source Comments [facility],non-owned Affiliates and Associated Physician Practices is amultiple site organization consisting of ambulatory clinics and hospital sitesin [place], [place], [place] and [place]. This disclosure is being madepursuant to the Care Everywhere program and may not contain all information available regarding this patient. Last updated 18.[facility] Immunizations Immunization Administration Dates Next Due INFLUENZA VACCINE, QUADR. (F LUZONE; FLULAVAL; FLUARIX; AFLURIA QUADRIVALENT; 6MO+), 0.5 ML (IIV4) 07/03/2018 Social History Tobacco Use Types Packs/Day Years Used Date Smoking Tobacco: Never Assessed Comments Unknown Sex and Gender Information Value Date Recorded Sex Assigned at Not on file Legal Sex Female 5:16 PM CDT Gender Identity Not on file Sexual Orientation Not on file Plan of Treatment Health Maintenance Due Date Last Done Comments COLOGUARD (AGES 45-75) - COLON CA SCREENING 1971 COLON MONITORING 1971 COLONOSCOPY - COLON CA SCREENING 1971 CT COLONOGRAPHY - COLON CA SCREENING 1971 Colorectal Cancer Screening 1971 FIT - COLON CA SCREENING 1971 FLEX SIG - COLON CA SCREENING 1971 LIPID TESTING 1971 HIV SCREENING 1986 HEPATITIS C SCREENING 10/30/1989 DTAP/TDAP/TD VACCINES (1 - Tdap) 1990 HEPATITIS B VACCINE (1 of 3 - 19+ 3-dose series) 1990 MAMMOGRAM 11/14/2020 11/14/2018, 10/19, 12/18/2016, Additional history exists PNEUMOCOCCAL VACCINE 50+ (1 of 1 - PCV) 2021 ZOSTER VACCINE (1 of 2) 2021 COVID-19 VACCINE (1 - season) 2024 DEPRESSION SCREENING 09/17/2024 INFLUENZA VACCINE (Season Ended) 2025 07/03/2018 HIB VACCINE Aged Out No longer eligi ble based on patient's age to complete this topic HPV VACCINE Aged Out No longer eligi ble based on patient's age to complete this topic MENINGOCOCCAL (Group B) VACCINE SHARED DECISION-MAKING Aged Out No longer eligible based on patient's age to complete this topic MENINGOCOCCAL GROUPS A/C/Y/W VACCINE Aged Out No longer eligible based on patient's age to complete this topic Insurance [facility] Address: [facility] [id number] [place] [address] HUSAM Care Teams Optical Engineering Manager Relationship Specialty Start Date End Date Davis Stockton DO PCP - General Internal Medicine 12/17/18
[2025-01-26 10:35] LABS: Basophils Absolute Auto 0.1 K/mm3 (0.0-0.1); Basophils Percent Auto 0.8 % (0.2-1.2); Eosinophils Absolute Auto 0.1 K/mm3 (0-0.3); Eosinophils Percent Auto 1.4 % (0-4.4); Hematocrit 42.5 % (37.0-47.0); Hemoglobin 13.8 g/dL (12.0-15.0); Immature Granulocyte Absolute 0.01 K/mm3 (0.00-0.031); Immature Granulocyte Percent A 0.2 % (0-0.5); Lymphocytes Absolute Auto 1.55 K/mm3 (0.9-3.2); Lymphocytes Percent Auto 24.6 % (18.3-44.2); Mean Corpuscular HGB Conc 32.5 g/dl (32-36); Mean Corpuscular Hemoglobin 29.4 pg (26-34); Mean Corpuscular Volume 90.6 fl (80-100); Monocytes Absolute Auto 0.5 K/mm3 (0.1-0.6); Monocytes Percent Auto 7.1 % (2.6-8.5); Neutrophils Absolute Auto 4.2 K/mm3 (1.3-6.7); Neutrophils Percent Auto 65.9 % (45.5-73.1); Platelet Count Result 232 k/mm3 (150-375); Red Blood Count 4.69 M/mm3 (4.2-5.4); Red Cell Distribution Width 12.2 % (11.5-14.5); White Blood Count 6.3 K/mm3 (4.5-10.0)
[2025-01-26 11:34] LABS: Alanine Aminotransferase 17 U/L (6-35); Albumin Level 4.3 g/dL (3.5-5.1); Alkaline Phosphatase 72 U/L (38-126); Anion Gap 7 mmol/L (4-12); Aspartate Amino Transferase 34 U/L (14-36); Bilirubin,Total 0.4 mg/dL (0.2-1.3); Blood Urea Nitrogen 20 mg/dL (7-17); Calcium 9.2 mg/dL (8.4-10.2); Carbon Dioxide 26 mmol/L (22-30); Chloride 106 mmol/L (98-107); Estimated Glomerular Filt Rate > 60; Glucose 108 mg/dL (65-110); Potassium 4.6 mmol/L (3.4-5.0); Sodium 139 mmol/L (137-145)
[2025-01-27 07:24] LABS: CA 15-3 13 U/mL (<32)
== END 2025-01-26 10:06 | disposition home or self-care (01) ==
LOC: ANHLAB 10:08
PROVIDERS: PCP Internal Medicine; Visit Provider Internal Medicine Hematology & Oncology
DX: C50.411 Malignant neoplasm of upper-outer quadrant of right female breast (principal); Z17.0 Estrogen receptor positive status [ER+]
CPT/HCPCS: 36415; 80053; 85025; 86300

== ENCOUNTER 2025-06-29 15:12 | Outpatient (CLI) | payer OTHER, SELFPAY ==
--- NOTE | ~2025-06-29 | MM_ITS ---
EXAMINATION: MM screening yifan BI w verónica HISTORY: Screening TECHNIQUE: Craniocaudal and mediolateral oblique 3-D tomosynthesis images were obtained and synthetic 2-D images were generated. CAD analysis was submitted and interpreted. COMPARISON: 04/25/2023 BREAST PARENCHYMAL COMPOSITION: The breasts are heterogeneously dense, which may obscure small masses. FINDINGS: There is no evidence of suspicious mass, calcification, or architectural distortion to suggest malignancy. There has been no suspicious interval change. IMPRESSION: 1. No mammographic evidence of malignancy. Recommend routine screening mammography in one year. BI-RADS Category 2: Benign finding(s) Reviewed, dictated and finalized at location Q. IMPRESSION: 1. No mammographic evidence of malignancy. Recommend routine screening mammogra phy in one year. BI-RADS Category 2: Benign finding(s)
--- OUTSIDE RECORDS SUMMARY | 2025-06-29 15:58 | XMS_ITS | Clinical Summary ---
Author Organization [facility] [address] Address [address] [place] [address] Care Team Providers Care Machine Precision Engraver Name Role Phone Davis Stockton DO Primary [...] on file Legal Sex Female 1:31 AM TELEVISION CABLE INSTALLER Gender Identity Not on file Sexual Orientation [...] 10:06 AM CDT Height 170.2 cm (5' 7) 05/09/2024 10:06 AM CDT Body Mass Index [...] of 2) 1990 Covid-19 Vaccine (4 - 2024- season) 2025 09/14/2021, 01/20/2021, 12/30/2020 Influenza Vaccine (#1) 2025 0, 07/03/2018, 07/01/2015 Insurance ANTHEM ACCESS CHOICE ANTHEM ACCESS CHOICE Care Teams Machine Precision Engraver Relationship Specialty Start Date End Date Davis Stockton DO PCP - General Internal Medicine 01/02/19
--- OUTSIDE RECORDS SUMMARY | 2025-06-29 15:58 | XMS_ITS | Clinical Summary ---
Author Organization [facility] Address [address] [place] [address] Care Team Providers Care Occupational Medicine Specialist Name Role Phone Davis Stockton DO Primary Care Provider Allergies Active Allergy Reactions Criticality Noted Date Comments Sulfa (Sulfonamide Antibiotics) Hives High 11/16 Medications acetaminophen- caffeine-butal bital (FIORICET) 300-40-50 mg capsule 9 Active fluticasone propionate (FLONASE) 50 mcg/spray [place], Suspension nasal inhaler Administer 2 Sprays in [...] Encounters Date Type Department Care Team Description 06/23/2025 External Device Data STL ABSTRACTION Provider, Abstract 06/02/2025 External Device Data STL ABSTRACTION Provider, Abstract 05/19/2025 External Device Data STL ABSTRACTION Provider, Abstract 05/05/2025 External Device Data STL ABSTRACTION Provider, Abstract 04/22/2025 External Device Data STL ABSTRACTION Provider, Abstract 04/21/2025 External Device Data STL ABSTRACTION Provider, Abstract 04/01/2025 External Device Data STL ABSTRACTION Provider, Abstract 03/31/2025 External Device Data STL ABSTRACTION Provider, Abstract [...] on file Legal Sex Female 11:23 AM SCREW SUPERVISOR Gender Identity Not on file Sexual Orientation Not on file Last Filed Vital Signs Vital Sign Reading Time Taken Comments Blood Pressure 114/83 01/30/2025 9:22 AM CDT Pulse 64 01/30/2025 9:22 AM CDT Temperature 36.4 C (97.6 F) 01/30/2025 9:22 AM CDT Respiratory Rate 15 01/30/2025 9:22 AM CDT Oxygen Saturation 97% 01/30/2025 9:22 AM CDT Inhaled Oxygen Concentration - - Weight 116.5 kg (256 lb 12.8 oz) 01/30/2025 9:22 AM CDT Height 170.2 cm (5' 7) 06/01/2022 11:0 8 AM CDT Body Mass Index 40.22 06/01/2022 11:08 AM CDT Plan of Treatment Upcoming Encounters Date Type Department Care Team (Late st Contact Info) Description 08/07/2025 9:15 AM SCREW SUPERVISOR Office Visit [facility] Oncology and Hematology [facility] [address] [facility] [address] [place] [address] Wei Nagel MD [address] [facility] [address] [place] [address] Health Maintenance Due Date Last [...] (1 of 2) 2021 INFLUENZA VACCINE (#1) 2025 07/03/2018 BREAST CANCER SCREENING 04/28/2025 04/28/20 24, 04/25/2023, [...] Most Recently Relevant to Health Maintenance Insurance [facility] [id number] [facility] Address: [facility] [id number] [place] [address] Care Teams Occupational Medicine Specialist Relationship Specialty Start Date End Date Davis Stockton DO [address] [facility] [address] [place] [address] PCP - General Internal Medicine 11/18/18
--- OUTSIDE RECORDS SUMMARY | 2025-06-29 15:58 | XMS_ITS | Clinical Summary ---
Author Organization [facility] [employer] Address [address] [facility] [place] [address] Care Team Providers Care Dumpcart Driver Name Role Phone Davis Stockton DO Primary Care Provider [phone] [phone] Source Comments [facility],non-owned Affiliates and Associated Physician Practices is amultiple site organization consisting of ambulatory clinics and hospital sitesin [place], [place], [place] and [place]. This disclosure is being madepursuant to the Care Everywhere program and may not contain all information available regarding this patient. Last updated 18.[facility] Immunizations Immunization Administration Dates Next Due INFLUENZA [...] 2021 ZOSTER VACCINE (1 of 2) 2021 DEPRESSION SCREENING 09/17/2024 COVID-19 VACCINE (1 - season) 2025 INFLUENZA VACCINE (#1) 2025 07/03/2018 HIB VACCINE Aged Out No [...] patient's age to complete this topic Insurance [facility] HUSAM Care Teams Dumpcart Driver Relationship Specialty Start Date End Date Davis Stockton DO PCP - General Internal Medicine 12/17/18
== END 2025-06-29 15:13 | disposition home or self-care (01) ==
LOC: ANHFOHIMG 15:13
PROVIDERS: PCP Internal Medicine; Visit Provider Internal Medicine Hematology & Oncology
DX: Z12.31 Encounter for screening mammogram for malignant neoplasm of breast (principal)
CPT/HCPCS: 77063; 77067

== ENCOUNTER 2025-07-03 09:01 | Outpatient (CLI) | payer OTHER, SELFPAY ==
--- NOTE | ~2025-07-03 | CT_ITS ---
EXAMINATION: CT sinus wo con COMPARISON: None HISTORY: J32.9 - Chronic sinusitis, unspecified TECHNIQUE: Axial images were obtained without IV contrast. Sagittal, coronal reconstruction images were obtained from the axial views. CT scan performed using dose optimization techniques including the following automated exposure control; adjustment of mA and/or kV; use of iterative reconstruction technique. Automatic exposure control was used to reduce radiation dose. Permanent radiation dose record is archived to PACS. FINDINGS: Visualized brain parenchyma, optic globes and soft tissues unremarkable Minimal mucosal thickening in the frontal and ethmoidal air cells. Minimal mucosal thickening in the maxillary sinuses with sequelae of previous surgery. Outflows of the maxillary sinuses are grossly patent. Nasal septum posteriorly deviated slightly to the left. No significant thickening of the turbinates on either the nasal cavities. Sphenoid sinus is unremarkable. There is no osseous destruction or wall thickening identified. IMPRESSION: Minimal sinusitis. Reviewed, dictated and finalized at location P. IMPRESSION: Minimal sinusitis.
--- OUTSIDE RECORDS SUMMARY | 2025-07-03 09:28 | XMS_ITS | Encounter Summary ---
Author Organization [facility] [employer] [facility] Address [address] [place] [address] Care Team Providers Care Commercial Photographer Name Role Phone LuzmacolleenAldo cosme Nhan Primary Care Provider Encounter Details Date Type Department Care Team ([facility] Contact Info) Description 07/02/2025 Orders Only [facility] Oncology and Hematology [facility] Nilay Vig[address] [place] [address] Wei Nagel MD [facility] [employer] [address] [place] [address] Social History Tobacco Use Types Packs/Day Years Used Date Smoking Tobacco: Never Smokeless Tobacco: Never Comments:socially 15 years a go Alcohol Use Standard Drinks/Week Comments Yes 0 (1 standard drink = 0.6 oz pur e alcohol) Comments No Sex and Gender Information Value Date Recorded Sex Assigned at Not on file Legal Sex Female 11:23 AM SECURITY DOOR INSTALLER Gender Identity Not on file Sexual Orientation Not on file documented as of this encounter Plan of Treatment Upcoming Encounters Date Type Department Care Team (Late Contact Info) Description 08/07/2025 9:15 AM SECURITY DOOR INSTALLER Office Visit [facility] Oncology and [facility] Jeremy V[address] [place] [address] Wei Nagel MD [facility] [employer] [address] [place] [address] documented as of this encounter Procedures Procedure Name Priority Date/Time Associated Diagnosis Comments MAMMO SCREENING BILAT Routine 06/29/2025 10:20 AM CDT documented in this encounter Results * MAMMO SCREENING BILAT (06/29/2025 10:20 AM CDT) Anatomical Region Laterality Modality Breast Bilateral Mammography Wei Nagel MD MAMMO ORDERABLES Final Result documented in this encounter Visit Diagnoses Not on filedocumented in this encounter Care Teams Commercial Photographer Relationship Specialty Start Date End Date Aldo Stockton DO [address] [address] PCP - General Internal Medicine 11/18/18 documented as of this encounter
--- OUTSIDE RECORDS SUMMARY | 2025-07-03 09:28 | XMS_ITS | Clinical Summary ---
Author Organization [facility] Address [address] [place] [address] Care Team Providers Care Gum Machine Filler Name Role Phone Davis Stockton DO Primary Care Provider Allergies Active Allergy Reactions Criticality Noted Date Comments Sulfa (Sulfonamide Antibiotics) Hives High 11/16 Medications acetaminophen- caffeine-butal bital (FIORICET) 300-40-50 mg capsule 9 Active fluticasone propionate (FLONASE) 50 mcg/spray [place], Suspension nasal inhaler Administer 2 Sprays in [...] Encounters Date Type Department Care Team Description 07/02/2025 Orders Only [facility] Oncology and Hematology - Michele [facility] Nilay Dozier [address] [address] Wei Nagel MD 06/23/2025 External Device Data STL ABSTRACTION Provider, [...] on file Legal Sex Female 11:23 AM SOLAR ENERGY ENGINEER Gender Identity Not on file Sexual Orientation [...] st Contact Info) Description 08/07/2025 9:15 AM SOLAR ENERGY ENGINEER Office Visit [facility] Oncology and Hematology [facility] [address] [facility] [address] [place] [address] Wei Nagel MD [address] [facility] [address] [place] [address] Health Maintenance Due Date Last [...] VACCINE (#1) 2025 07/03/2018 BREAST CANCER SCREENING 06/29/2026 06/29/20 25, 04/28/2024, 04/25/2023, Additional history exists Procedures Procedure Name Priority Date/Time Associated Diagnosis Comments MAMMO SCREENING BILAT Routine 06/29/2025 10:20 AM CDT from Last 3 Months Results * MAMMO SCREENING BILAT (06/29/2025 10:20 AM CDT) Anatomical Region Laterality Modality Breast Bilateral Mammography us Wei Nagel MD MAMMO ORDERABLES Final Result from Last 3 Months Insurance [facility] [id number] [facility] Address: [facility] [id number] [place] [address] Care Teams Gum Machine Filler Relationship Specialty Start Date End Date Davis Stockton DO [address] [facility] [address] [place] [address] PCP - General Internal Medicine 11/18/18
--- OUTSIDE RECORDS SUMMARY | 2025-07-03 09:28 | XMS_ITS | Clinical Summary ---
Author Organization [facility] [address] Address [address] [place] [address] Care Team Providers Care Entertainment Musician Name Role Phone Davis Stockton DO Primary [...] on file Legal Sex Female 1:31 AM SERVICING MANAGER Gender Identity Not on file Sexual Orientation [...] ACCESS CHOICE ANTHEM ACCESS CHOICE Care Teams Entertainment Musician Relationship Specialty Start Date End Date Davis Stockton DO PCP - General Internal Medicine 01/02/19
== END 2025-07-03 09:02 | disposition home or self-care (01) ==
LOC: ANHIMG 09:05
PROVIDERS: PCP Internal Medicine; Visit Provider Otolaryngology
DX: J32.9 Chronic sinusitis, unspecified (principal)
CPT/HCPCS: 70486

== ENCOUNTER 2025-07-09 14:56 | Outpatient (CLI) | payer OTHER, SELFPAY ==
--- OUTSIDE RECORDS SUMMARY | 2025-07-08 08:24 | XMS_ITS | Encounter Summary ---
Author Organization [facility] Address [address] [place] [address] Care Team Providers Care Electricity Trading Analyst Name Role Phone Aldo Stockton DO Primary Care Provider Encounter Details Date Type Department Care Team (Late st Contact Info) Description 07/08/2025 External Device Data STL ABSTRACTION Provider, Abstract NO ADDRESS ON FILE Social History Tobacco Use Types Packs/Day Years Used Date Smoking Tobacco: Never Smokeless Tobacco: Never Comments:socially 15 years a go Alcohol Use Standard Drinks/Week Comments Yes 0 (1 standard drink = 0.6 oz pur e alcohol) Comments No Sex and Gender Information Value Date Recorded Sex Assigned at Not on file Legal Sex Female 11:23 AM COMPUTER COMPOSITOR Gender Identity Not on file Sexual Orientation Not on file documented as of this encounter Plan of Treatment Upcoming Encounters Date Type Department Care Team (Late st Contact Info) Description 08/07/2025 9:15 AM COMPUTER COMPOSITOR Office Visit [facility] Oncology and Hematology - [place] [address] [facility] [address] [place] [address] Wei Nagel MD [address] [facility] [address] [place] [address] documented as of this encounter Visit Diagnoses Not on filedocumented in this encounter Care Teams Electricity Trading Analyst Relationship Specialty Start Date End Date Aldo Stockton DO [address] [facility] [address] [place] [address] PCP - General Internal Medicine 11/18/18 documented as of this encounter
--- OUTSIDE RECORDS SUMMARY | 2025-07-08 08:24 | XMS_ITS | Clinical Summary ---
Author Organization [facility] [employer] Address [address] [place] [address] Care Team Providers Care Tractor Sweeper Driver Name Role Phone Davis Stockton DO Primary Care Provider +1 [phone] Source Comments [facility],non-owned Affiliates and Associated Physician Practices is amultiple site organization consisting of ambulatory clinics and hospital sitesin [place], [place], [place] and [place]. This disclosure is being madepursuant to the Care Everywhere program and may not contain all information available regarding this patient. Last updated 18.[facility] Immunizations Immunization Administration Dates Next Due INFLUENZA [...] patient's age to complete this topic Insurance [facility] HUSAM Care Teams Tractor Sweeper Driver Relationship Specialty Start Date End Date Davis Stockton DO PCP - General Internal Medicine 12/17/18
--- OUTSIDE RECORDS SUMMARY | 2025-07-08 08:24 | XMS_ITS | Clinical Summary ---
Author Organization [facility] [address] Address [address] [place] [address] Care Team Providers Care Regional Clinical Research Associate Name Role Phone Aldo Stockton DO Primary Care Provider Allergies Active [...] on file Legal Sex Female 1:31 AM REGULATORY ASSOCIATE Gender Identity Not on file Sexual Orientation [...] ACCESS CHOICE ANTHEM ACCESS CHOICE Care Teams Regional Clinical Research Associate Relationship Specialty Start Date End Date Aldo Stockton DO PCP - General Internal Medicine 01/02/19
--- OUTSIDE RECORDS SUMMARY | 2025-07-08 08:24 | XMS_ITS | Clinical Summary ---
Author Organization [facility] Address [address] [place] [address] Care Team Providers Care Sql Ssrs Developer Name Role Phone Davis Stockton DO Primary Care Provider Allergies Active Allergy Reactions Criticality Noted Date Comments Sulfa (Sulfonamide Antibiotics) Hives High 11/16 Medications acetaminophen- caffeine-butal bital (FIORICET) 300-40-50 mg capsule 9 Active fluticasone propionate (FLONASE) 50 mcg/spray [place], Suspension nasal inhaler Administer 2 Sprays in [...] Encounters Date Type Department Care Team Description 07/08/2025 External Device Data STL ABSTRACTION Provider, Abstract 07/02/2025 Orders Only [facility] Oncology and Hematology - [place] [address] [address] [address] Wei Nagel MD 06/23/2025 External Device Data [...] on file Legal Sex Female 11:23 AM SUBWAY CONDUCTOR Gender Identity Not on file Sexual Orientation [...] st Contact Info) Description 08/07/2025 9:15 AM SUBWAY CONDUCTOR Office Visit [facility] Oncology and Hematology [facility] [address] [facility] [address] [place] [address] Wei Nagel MD [address] [facility] [address] [place] [address] Health Maintenance Due Date Last [...] Final Result from Last 3 Months Insurance [facility] [id number] [facility] Address: [place] [address] Care Teams Sql Ssrs Developer Relationship Specialty Start Date End Date Davis Stockton DO [address] [facility] [address] [place] [address] PCP - General Internal Medicine 11/18/18
--- OUTSIDE RECORDS SUMMARY | 2025-07-08 08:24 | XMS_ITS | Encounter Summary ---
Author Organization [facility] [employer] [facility] Address [address] [place] [address] Care Team Providers Care Enamel Machine Operator Name Role Phone LuzmacolleenAldo cosme Nhan Primary Care Provider Encounter Details Date Type Department Care Team ([facility] Contact Info) Description 07/02/2025 Orders Only [facility] Oncology and Hematology [facility] Nilay Vig[address] [place] [address] [facility] [employer] [address] [place] [address] Social History Tobacco Use Types Packs/Day Years Used Date Smoking Tobacco: Never Smokeless Tobacco: Never Comments:socially 15 years a go Alcohol Use Standard Drinks/Week Comments Yes 0 (1 standard drink = 0.6 oz pur e alcohol) Comments No Sex and Gender Information Value Date Recorded Sex Assigned at Not on file Legal Sex Female 11:23 AM MACHINE ACCOUNTANT Gender Identity Not on file Sexual Orientation Not on file documented as of this encounter Plan of Treatment Upcoming Encounters Date Type Department Care Team (Late Contact Info) Description 08/07/2025 9:15 AM MACHINE ACCOUNTANT Office Visit [facility] Oncology and [facility] Jeremy [address] [place] [address] [facility] [employer] [address] [place] [address] documented as of this encounter Procedures Procedure Name Priority Date/Time Associated Diagnosis Comments MAMMO SCREENING BILAT Routine 06/29/2025 10:20 AM CDT documented in this encounter Results * MAMMO SCREENING BILAT (06/29/2025 10:20 AM CDT) Anatomical Region Laterality Modality Breast Bilateral Mammography Wei Nagel MD MAMMO ORDERABLES Final Result documented in this encounter Visit Diagnoses Not on filedocumented in this encounter Care Teams Enamel Machine Operator Relationship Specialty Start Date End Date Aldo Stockton DO [address] [address] PCP - General Internal Medicine 11/18/18 documented as of this encounter
--- NOTE | ~2025-07-09 | MR_ITS ---
MR breast BI wo/w con INDICATION:54 year old female with personal history of right mastectomy for breast cancer with breast reconstruction with silicone implant. Patient has elevated lifetime risk of breast cancer and presents for high-risk screening breast MRI. Most recent screening mammogram completed on 06/29/2025 showed no mammographic evidence of malignancy. TECHNIQUE: MRI of the breasts perform using standard protocol pre-and post IV contrast with the following sequences: Axial T2 STIR, axial T1, axial vibrant T1 with fat suppression precontrast and multiphasic postcontrast. 20 cc MultiHance administered intravenously. COMPARISON: Mammogram and ultrasound dated 06/29/2025. FINDINGS: There is Scattered fibroglandular tissue that demonstrates Minimal and is Not applicable. Right breast: There is a single lumen silicone implant in place with no evidence of implant rupture or periimplant fluid collection. Postsurgical changes that reflects mastectomy. No enhancing lesions following contrast administration. No areas of enhancement meeting threshold criteria on CAD analysis. No evidence of signal abnormalities in the axillary or internal mammary node distributions. LEFT BREAST: No signal abnormalities on precontrast sequences. There is minimal background parenchymal enhancement. No enhancing lesions following contrast administration. No areas of enhancement meeting threshold criteria on CAD analysis. The nipple areolar complex is normal in appearance. No evidence of signal abnormalities in the axillary or internal mammary node distributions.] IMPRESSION: 1: Right breast: No evidence of tumor recurrence. Silicone implants appears intact. 2. Left breast: Negative. No evidence of malignancy. 3. The chest wall and axillary portion of the examination are unremarkable. RECOMMENDATION: Follow-up MRI may be useful for supplementing mammographic evaluation as clinically indicated. BI-RADS Category 2: Benign finding(s). Reviewed, dictated and finalized at location B. IMPRESSION: 1: Right breast: No evidence of tumor recurrence. Silicone implants appears in tact. 2. Left breast: Negative. No evidence of malignancy. 3. The chest wall and axillary portion of the examination are unremarkable. RECOMMENDATION: Follow-up MRI may be useful for supplementing mammographic evaluation as clinic ally indicated. BI-RADS Category 2: Benign finding(s).
--- OUTSIDE RECORDS SUMMARY | 2025-07-09 16:08 | XMS_ITS | Encounter Summary ---
Author Organization [facility] Address [address] [place] [address] Care Team Providers Care Public Address System Operator Name Role Phone Aldo Stockton DO Primary [...] on file Legal Sex Female 11:23 AM LEAD RELAY TESTER Gender Identity Not on file Sexual Orientation Not on file documented as of this encounter Plan of Treatment Upcoming Encounters Date Type Department Care Team (Late st Contact Info) Description 08/07/2025 9:15 AM LEAD RELAY TESTER Office Visit [facility] Oncology and Hematology - [place] [address] [facility] [address] [place] [address] Wei Nagel MD [address] [facility] [address] [place] [address] documented as of this encounter Visit Diagnoses Not on filedocumented in this encounter Care Teams Public Address System Operator Relationship Specialty Start Date End Date Aldo Stockton DO [address] [facility] [address] [place] [address] PCP - General Internal Medicine 11/18/18 documented as of this encounter
--- OUTSIDE RECORDS SUMMARY | 2025-07-09 16:08 | XMS_ITS | Clinical Summary ---
Author Organization [facility] [address] Address [address] [place] [address] Care Team Providers Care Beam Saw Operator Name Role Phone Davis Stockton DO Primary [...] on file Legal Sex Female 1:31 AM INSURANCE BUSINESS ANALYST Gender Identity Not on file Sexual Orientation [...] ACCESS CHOICE ANTHEM ACCESS CHOICE Care Teams Beam Saw Operator Relationship Specialty Start Date End Date Davis Stockton DO PCP - General Internal Medicine 01/02/19
--- OUTSIDE RECORDS SUMMARY | 2025-07-09 16:08 | XMS_ITS | Clinical Summary ---
Author Organization [facility] Address [address] [place] [address] Care Team Providers Care Account Officer Name Role Phone Unavailable Primary Care Provider Unavailabl e Allergies Active Allergy Reactions Criticality Noted Date Comments Sulfa (Sulfonamide Antibiotics) Hives High 11/16 Medications acetaminophen-c affeine-butalbi izabella (FIORICET) 300-40-50 mg capsule 9 Active acetaminophen-c affeine-butalbi izabella (FIORICET) 300-40-50 mg capsule 9 Active cetirizine (ZyrTEC) 10 mg tablet Take 10 mg by mouth. Active FLUoxetine (PROzac) 40 mg capsule 9 Active FLUoxetine (PROzac) 40 mg capsule 9 Active fluticasone propionate (FLONASE) 50 mcg/spray [place], Suspension nasal inhaler Administer 2 Sprays in each nostril. Active levonorgestrel (MIRENA) 20 mcg/24 hours (5 yrs) 52 mg IUD Activ e lidocaine-prilo dusty (EMLA) 2.5-2.5 % Cream Apply to affected area. 9 Active ondansetron (ZOFRAN ODT) 4 mg Tablet, Rapid Dissolve Take 4 mg by mouth every 8 hours as needed. 9 Active propranolol (INDERAL) 60 mg Tablet 9 Active propranolol (INDERAL) 60 mg Tablet 9 Active tamoxifen (NOLVADEX) 20 mg tablet Take 20 mg by mouth. 9 Active tamoxifen (NOLVADEX) 20 mg tablet 9 Active Active Problems No known active problems Social History Tobacco Use Types Packs/Day Years Used Date Smoking Tobacco: Never Smokeless Tobacco: Never Comments No Sex and Gender Information Value Date Recorded Sex Assigned at Not on file Legal Sex Female 11:16 AM DROP WIRE ALIGNER Gender Identity Not on file Sexual Orientation Not on file Last Filed Vital Signs Vital Sign Reading Time Taken Comments Blood Pressure 108/72 08/15/2019 11:21 AM DROP WIRE ALIGNER Pulse 73 08/15/2019 11:21 AM DROP WIRE ALIGNER Temperature 36.8 C (98.2 F) 08/15/2019 11:21 AM DROP WIRE ALIGNER Respiratory Rate - - Oxygen Saturation 97% 08/15/2019 11:21 AM DROP WIRE ALIGNER Inhaled Oxygen Concentration - - Weight 104.3 kg (230 lb) 08/15/2019 11:21 AM DROP WIRE ALIGNER Height 170.2 cm (5' 7) 08/15/2019 11:21 AM DROP WIRE ALIGNER Body Mass Index 36.02 08/15/2019 11:21 AM DROP WIRE ALIGNER Plan of Treatment Health Maintenance Due Date Last Done Comments DTAP/TDAP/TD VACCINES (1 - Tdap) 1990 HEPATITIS B VACCINES (1 of 3 - 19+ 3-dose series) 10/18 HPV/Cotest (21-29) 1992 CERVICAL CANCER SCREENING 2001 HPV/Cotest (30-65) 2001 PAP SMEAR 2001 BREAST CANCER SCREENING 2011 COLORECTAL SCREENING 2016 Colorectal Cancer Screening 2016 FIT-DNA Q 3 years 2016 FIT/FOBT Q 1 year 2016 Flex Sig/CT Colonography Q 5 years 2016 ZOSTER VACCINE (1 of 2) 2021 INFLUENZA VACCINE (#1) 2025 07/03/2018 Insurance BS
--- OUTSIDE RECORDS SUMMARY | 2025-07-09 16:08 | XMS_ITS | Clinical Summary ---
Author Organization [facility] [employer] Address [address] [place] [address] Care Team Providers Care Rv Repair Technician Name Role Phone Davis Stockton DO Primary Care Provider [phone] Source Comments [facility],non-owned Affiliates and Associated Physician Practices is amultiple site organization consisting of ambulatory clinics and hospital sitesin [place], [place], [place] and [place]. This disclosure is being madepursuant to the Care Everywhere program and may not contain all information available regarding this patient. Last updated 18.[facility] Immunizations Immunization Administration Dates Next [...] patient's age to complete this topic Insurance [facility] Address: [facility] [id number] [place] [address] HUSAM Care Teams Rv Repair Technician Relationship Specialty Start Date End Date Davis Stockton DO PCP - General Internal Medicine 12/17/18
--- OUTSIDE RECORDS SUMMARY | 2025-07-09 16:08 | XMS_ITS | Clinical Summary ---
Author Organization [facility] Address [address] [place] [address] Care Team Providers Care Actuarial Consultant Name Role Phone Davis Stockton DO Primary Care Provider Allergies Active Allergy Reactions Criticality Noted Date Comments Sulfa (Sulfonamide Antibiotics) Hives High 11/16 Medications acetaminophen- caffeine-butal bital (FIORICET) 300-40-50 mg capsule 9 Active fluticasone propionate (FLONASE) 50 mcg/spray [place], Suspension nasal inhaler Administer 2 Sprays in [...] STL ABSTRACTION Provider, Abstract 07/02/[address] [facility] Oncology and Hematology - [place] [address] [address] [address] Wei Nagel MD 06/23/2025 External Device Data [...] on file Legal Sex Female 11:23 AM DIETARY SERVICES DIRECTOR Gender Identity Not on file Sexual Orientation [...] st Contact Info) Description 08/07/2025 9:15 AM DIETARY SERVICES DIRECTOR Office Visit [facility] Oncology and Hematology [facility] [address] [facility] [address] [place] [address] Wei Nagel MD [address] [facility] [address] [place] [address] Health Maintenance Due Date Last [...] Final Result from Last 3 Months Insurance [facility] [id number] Care Teams Actuarial Consultant Relationship Specialty Start Date End Date Davis Stockton DO [address] [facility] [address] [place] [address] PCP - General Internal Medicine 11/18/18
== END 2025-07-09 14:57 | disposition home or self-care (01) ==
PROVIDERS: PCP Internal Medicine; Visit Provider Plastic Surgery
DX: N64.89 Other specified disorders of breast (principal); C50.411 Malignant neoplasm of upper-outer quadrant of right female breast; Z17.0 Estrogen receptor positive status [ER+]; Z90.13 Acquired absence of bilateral breasts and nipples
CPT/HCPCS: 77049; A9577; C8908

== ENCOUNTER 2025-08-03 08:41 | Outpatient (CLI) | payer OTHER, SELFPAY ==
[2025-08-03 09:03] LABS: Hematocrit 41.0 % (37.0-47.0); Hemoglobin 13.5 g/dL (12.0-15.0); Immature Granulocyte Percent A 0.2 % (0-0.5); Lymphocytes Absolute Auto 1.29 K/mm3 (0.9-3.2); Mean Corpuscular HGB Conc 32.9 g/dl (32-36); Mean Corpuscular Hemoglobin 29.7 pg (26-34); Mean Corpuscular Volume 90.3 fl (80-100); Nucleated Red Blood Cells Absolute Auto 0.000 K/mm3 (0.0-0.012); Nucleated Red Blood Cells Perc 0.0 % (0.0-0.2); Platelet Count Result 245 k/mm3 (150-375); Red Blood Count 4.54 M/mm3 (4.2-5.4); White Blood Count 5.6 K/mm3 (4.5-10.0)
[2025-08-03 12:07] LABS: Alanine Aminotransferase 15 U/L (6-35); Albumin Level 4.3 g/dL (3.5-5.1); Alkaline Phosphatase 82 U/L (38-126); Anion Gap 8 mmol/L (4-12); Aspartate Amino Transferase 22 U/L (14-36); Bilirubin,Total 0.5 mg/dL (0.2-1.3); Blood Urea Nitrogen 17 mg/dL (7-17); Calcium 9.2 mg/dL (8.4-10.2); Carbon Dioxide 27 mmol/L (22-30); Chloride 105 mmol/L (98-107); Estimated Glomerular Filt Rate 53; Glucose 106 mg/dL (65-110); Potassium 4.4 mmol/L (3.4-5.0); Sodium 140 mmol/L (137-145); Total Protein 6.9 g/dL (6.3-8.2)
== END 2025-08-03 08:42 | disposition home or self-care (01) ==
LOC: ANHLAB 08:42
PROVIDERS: PCP Internal Medicine; Visit Provider Internal Medicine Hematology & Oncology
DX: C50.411 Malignant neoplasm of upper-outer quadrant of right female breast (principal); Z17.0 Estrogen receptor positive status [ER+]
CPT/HCPCS: 36415; 80053; 85025; 86300